=== PATIENT | female | born 1950 | race Caucasian/White ===

== ENCOUNTER 2020-08-31 09:11 | Outpatient (REF) | payer MEDICARE, SELFPAY ==
--- NOTE | 2020-08-31 09:16 | MM_ITS ---
EXAMINATION: MM SCREENING DIGITAL BREAST TOMOSYNTHESIS, BILATERAL CLINICAL INFORMATION: Screening. Asymptomatic. The lifetime risk of breast cancer based on the Tyrer-Cuzick Model is 3.7%. COMPARISON: Mammography: August 27, 2019 and studies dating back to July 02, 2012 TECHNIQUE: Digital breast tomosynthesis is performed in both the craniocaudal and mediolateral oblique views along with computer-aided detection (CAD). Synthesized 2D images are generated from the tomosynthesis. FINDINGS: The breasts are heterogeneously dense, which may obscure small masses (ACR BI-RADS breast composition Category c). There are no significant masses, abnormal calcifications, or other abnormalities. MM/MM tomosynthesis screening BI IMPRESSION: There are no significant changes from prior study. ASSESSMENT: BI-RADS 1: Negative RECOMMENDATION: Routine annual mammography screening. This patient's information was entered into a reminder system with a target due date for their next mammogram.
== END 2020-08-31 09:12 | disposition home or self-care (01) ==
LOC: HO.MAMMO 09:11
DX: Z12.31 Encounter for screening mammogram for malignant neoplasm of breast (principal)
CPT/HCPCS: 77063; 77067

== ENCOUNTER → 2020-09-28 12:49 | Outpatient (BNVA) | payer MEDICARE, SELFPAY | PROVIDERS: Visit Provider Physician Assistant | DX: Z13.89 Encounter for screening for other disorder (principal) | CPT/HCPCS: Q3014 ==

== ENCOUNTER 2020-10-21 07:52 | Outpatient (REF) | payer MEDICARE, SELFPAY ==
[2020-10-21 11:25] LABS: Hematocrit 46.6 % (37-47); Mean Corpuscular HGB Conc 32.2 g/dl (31.0-35.0); Mean Corpuscular Hemoglobin 27.9 pg (27.0-33.0); Mean Corpuscular Volume 86.8 fL (80-98); Mean Platelet Volume 11.9 fL (9.4-12.3); Platelet Count 203 X10*3/uL (160-400); Red Blood Count 5.37 X10*6/uL (4.20-5.50); Red Cell Distribution Width 13.7 % (11.0-16.0); White Blood Count 6.7 X10*3/uL (4.8-10.8)
[2020-10-21 12:02] LABS: Alanine Aminotransferase 42 U/L (0-31); Albumin Level 4.5 g/dL (3.5-5.0); Alkaline Phosphatase 90 U/L (39-117); Anion Gap 14 (12-20); Aspartate Amino Transferase 26 U/L (5-31); Bilirubin Direct 0.5 mg/dL (0.0-0.5); Bilirubin Total 1.1 mg/dL (0.0-1.0); Blood Urea Nitrogen 16 mg/dL (9-16); Calcium 9.3 mg/dL (8.4-10.2); Carbon Dioxide 26 mmol/L (22-29); Chloride 107 mmol/L (96-108); Cholesterol 137 mg/dL; Estimated Glomerular Filt Rate > 60; Glucose Random 93 mg/dL (60-115); HDL Cholesterol 40 mg/dL; LDL Cholesterol Calculated 73 mg/dl; Potassium 4.1 mmol/L (3.3-5.1); Sodium 143 mmol/L (135-145); Triglycerides 124 mg/dL
[2020-10-21 12:07] LABS: Thyroid Stimulating Hormone 1.27 uIU/mL (0.32-4.0)
[2020-10-21 14:01] LABS: Folate 12.9 ng/mL (> or = 4.0); Vitamin B12 219 pg/mL (200-900)
[2020-10-27 14:27] LABS: Vitamin D 25-OH, D2 <4 ng/mL; Vitamin D 25-OH, D3 34 ng/mL; Vitamin D 25-OH, Total 34 ng/mL (30-100)
== END 2020-10-21 07:53 | disposition home or self-care (01) ==
LOC: HO.HMGCLDS 07:52
PROVIDERS: PCP Internal Medicine; Visit Provider Internal Medicine
DX: R15.9 Full incontinence of feces (principal)
CPT/HCPCS: 36415; 80048; 80061; 80076; 82306; 82607; 82746; 84443; 85027

== ENCOUNTER 2020-11-15 09:27 | Day surgery (SDC) | payer MEDICARE, SELFPAY ==
[2020-11-08 15:23] VITALS: BMI 29.9
--- NOTE | 2020-11-14 09:43 | HO.ANESPROP2 ---
Documented by User: Margaret Corrales 11/14/20 09:44 HPI - Anesthesia Eval Consult details Narrative: 69yo F for Colonoscopy PMFSH Active Problems Active Problems: All Active Problems (Updated 11/08/20 @ 15:23 by Migdalia Gonzalez) Vitamin D deficiency (Acute) History of adenomatous polyp of colon (Acute) Hypercholesterolemia (Acute) Fecal incontinence (Acute) Change in stool (Acute) Past Medical History Medical History Change in stool Fecal incontinence Hypercholesterolemia Vitamin D deficiency Family History Family History Father HTN (hypertension) Heart attack Mother Parkinsons disease Brother Hemorrhage following kidney biopsy Sister Brain aneurysm Surgical History Surgical History H/O colonoscopy History of cholecystectomy History of surgery on arm Social History Social History Household Members: Spouse Are you a primary student career development specialist to a significant other at home: No Do you presently have visiting nurse or other home services: No Alcohol intake: current Alcohol intake frequency: does not drink Smoking Status: Former smoker Tobacco Type: Cigarette Smoking Quit Date: 11 yrs ago Use of substances other than those prescribed or required for medical reasons: No Have you been hit, kicked, punched, or otherwise hurt by someone within the past year? If so, by whom?: No Advance Directives: No Advance Directives Information Provided: No Advance Directives on File: No Recently lost weight without trying: No Meds Allergies Allergy/AdvReac Type Severity Reaction Status Date / Time No Known Allergies Allergy Verified 11/15/20 10:00 [No Known Allergies*] Home Medications Medication Instructions Recorded Confirmed Last Taken Type atorvastatin 10 mg tablet 10 mg PO DAILY 09/28/20 11/08/20 11/15/20 07:30 History cholecalciferol (vitamin D3) 1 cap PO QWEEK 11/08/20 11/08/20 Unknown History Exam Exam Date and Time: November 14, 2020 0943 Height,Weight and Vital Signs: Height 5 ft 3 in Weight 76.657 kg Pertinent Lab Results Pertinent Lab Results: Laboratory Tests 10/21/20 10/21/20 07:57 07:57 WBC 6.7 Hgb 15.0 Hct 46.6 Plt Count 203 Sodium 143 Potassium 4.1 Chloride 107 Carbon Dioxide 26 BUN 16 Creatinine 0.80 Assessment and Plan Assessment Anesthesia Assessment: Chart Reviewed Documented by User: Stoney Ojeda 11/15/20 10:33 [facility] Past Medical History Medical History Change in stool Fecal incontinence Hypercholesterolemia Vitamin D deficiency Family History Family History Father HTN (hypertension) Heart attack Mother Parkinsons disease Brother Hemorrhage following kidney biopsy Sister Brain aneurysm Surgical History Surgical History H/O colonoscopy History of cholecystectomy History of surgery on arm Social History Social History Household Members: Spouse Are you a primary student career development specialist to a significant other at home: No Do you presently have visiting nurse or other home services: No Alcohol intake: current Alcohol intake frequency: does not drink Smoking Status: Former smoker Tobacco Type: Cigarette Smoking Quit Date: 11 yrs ago Use of substances other than those prescribed or required for medical reasons: No Have you been hit, kicked, punched, or otherwise hurt by someone within the past year? If so, by whom?: No Advance Directives: No Advance Directives Information Provided: No Advance Directives on File: No Recently lost weight without trying: No Meds Allergies Allergy/AdvReac Type Severity Reaction Status Date / Time No Known Allergies Allergy Verified 11/15/20 10:00 [No Known Allergies*] Home Medications Medication Instructions Recorded Confirmed Last Taken Type atorvastatin 10 mg tablet 10 mg PO DAILY 09/28/20 11/08/20 11/15/20 07:30 History cholecalciferol (vitamin D3) 1 cap PO QWEEK 11/08/20 11/08/20 Unknown History Exam Airway Mallampati Class: II TM Dist: >3cm Neck ROM: Full Loose/Missing/Broken Teeth: Yes (many crowns/Caps) Heart: rrr+[id number] Lungs: cta b/l Assessment and Plan Assessment Anesthesia Assessment: Anesthesia Plan Discussed, PAT Visit and Chart Reviewed Final Anesthetic Review NPO: Yes ASA Class: III Final Preanesthetic Review: No Changes in Pt Med Stat, Meds/Allgs Chart Reviewed, Consent Obtained/Reviewed and Anes Risks/Benef Reviewed Patient Risk: Intermediate Procedure Risk: Low Assessment/Block/Sedation in SS: Assess/Block/Sedation-SS Anesthetic Plan Anesthetic Plan: MAC: and Agree w/ Assess. and Plan Disposition: Standard PACU
[2020-11-15 10:04] VITALS: BP 157/71; PULSE 73; RESP 16; TEMP 36.4; O2SAT 98
[2020-11-15] MEDS: Lactated Ringers 1,000 ML 100 ML IVCONT (10:09)
--- NOTE | 2020-11-15 10:46 | MHC.SHP ---
Pre-Procedural Eval Section B Chief Complaint: hx of colonic polyps Details of Present Illness: Colon cancer screening, Hx Tubular adenoma-2009 No clinical changes from September GI problem--Fecal leakage Relevant Family History (Specify if Yes): No Relevant Social History: None Present Medications: see Short Stay Collaborative assessment Medical History: Significant History (Hyperlipidema) History of Previous Operations: Relevant previous surgery/procedure and date(s) (Cholecystectomy, colonoscopy prev 2) Allergies: Allergies Allergy/AdvReac Type Severity Reaction Status Date / Time No Known Allergies Allergy Verified 11/15/20 10:00 [No Known Allergies*] Review of Systems Sugical H&P ROS: Negative: Constitution, Cardiovascular, Respiratory and Gastrointestinal Exam Surgical H&P Exam: Normal: HEENT, Normal: Heart, Normal: Extremities and Normal: Abdomen Plan Diagnosis/Plan: Unchanged I have reviewed the history and physical and performed a pertinent physical examination on my patient. No changes have occurred unless specified.yes
--- NOTE | 2020-11-15 11:19 | PM.OP ---
Brief Operative Note Date of Service: 11/15/20 Pre-op diagnosis: Hx of Tubular Adenoma, fecal incontinence Post-op diagnosis: other (rectal polyp, Diverticulosis, hx fecal incontinence) Procedure: Colonoscopy with excisional polypectomy Implants: NONE Surgeon: Taryn Hassan MD Anesthesia: MAC (Cuff, SERVICE DISPATCHER) and regional Estimated blood loss (mL): 5 Pathology: other (rectal polyp) Condition: stable Disposition: PACU
[2020-11-15 11:20] VITALS: BP 110/53; PULSE 72; RESP 20; TEMP 37.4; O2SAT 99
[2020-11-15 11:35] VITALS: BP 117/61; PULSE 77; RESP 20; O2SAT 97
[2020-11-15 11:50] VITALS: BP 137/72; PULSE 75; RESP 20; TEMP 37.1; O2SAT 99
--- NOTE | 2020-11-15 16:35 | W.PM.OPN ---
Operative Note Operative Note Date of Service: 11/15/20 Narrative: Pre-op diagnosis: Hx of Tubular Adenoma, fecal incontinence Post-op diagnosis: other (rectal polyp, Diverticulosis, hx fecal incontinence) Procedure: Colonoscopy with excisional polypectomy Implants: NONE Surgeon: Taryn Hassan MD Anesthesia: MAC (Cuff, BROOCH MAKER NOVELTY) FINDINGS: KINGSLEY: Minimal sphincter tone, External skin tags. Adult slim colonoscope was introduced without difficulty navigated through the sigmoid colon--scattered diverticulosis was present. Scope continued to be advanced into the descending, transverse, ascending colon into the cecum. Appendiceal orifice and ileocecal valve were well seen. PREP was GOOD. Slow withdrawal of scope, good rotational views no mucosal lesions were appreciated. In the rectum there was a diminutive polyp that had slightly variable crypt pattern-removed with cold bx forceps. ARV was clear. Estimated blood loss (mL): 5 Pathology: other (rectal polyp) Condition: stable Disposition: PACU PLAN: Screening will continue @ 5 years. Will try to advise on management of the fecal incontinence. Consideration for anal manometry may be considered.
== END 2020-11-15 12:41 | disposition home or self-care (01) ==
PROVIDERS: PCP Internal Medicine; Visit Provider Internal Medicine Gastroenterology
PROC: 0DJD8ZZ Inspection of Lower Intestinal Tract, Via Natural or Artificial Opening Endoscopic (ICD-10-PCS; CPT 45378; principal; 2020-11-15 10:40)
DX: Z12.11 Encounter for screening for malignant neoplasm of colon (principal); Z86.010 Personal history of colon polyps; K62.1 Rectal polyp; K57.30 Diverticulosis of large intestine without perforation or abscess without bleeding; K64.4 Residual hemorrhoidal skin tags; R15.9 Full incontinence of feces; E55.9 Vitamin D deficiency, unspecified; Z90.49 Acquired absence of other specified parts of digestive tract; Z87.891 Personal history of nicotine dependence; Z79.899 Other long term (current) drug therapy
CPT/HCPCS: 45380; 88305

== ENCOUNTER → 2020-11-21 10:33 | Outpatient (BNVA) | payer MEDICARE, SELFPAY | PROVIDERS: PCP Internal Medicine; Visit Provider Physician Assistant | DX: R15.9 Full incontinence of feces (principal) | CPT/HCPCS: 99212 ==

== ENCOUNTER 2021-05-08 06:26 | Outpatient (REF) | payer MEDICARE, SELFPAY ==
[2021-05-08 07:44] LABS: Hematocrit 42.7 % (37-47); Mean Corpuscular HGB Conc 32.8 g/dl (31.0-35.0); Mean Corpuscular Hemoglobin 27.9 pg (27.0-33.0); Mean Corpuscular Volume 85.2 fL (80-98); Mean Platelet Volume 11.1 fL (9.4-12.3); Platelet Count 207 X10*3/uL (160-400); Red Blood Count 5.01 X10*6/uL (4.20-5.50); Red Cell Distribution Width 14.1 % (11.0-16.0); White Blood Count 6.8 X10*3/uL (4.8-10.8)
[2021-05-08 08:26] LABS: Alanine Aminotransferase 32 U/L (0-31); Albumin Level 4.2 g/dL (3.5-5.0); Alkaline Phosphatase 97 U/L (39-117); Anion Gap 12 (12-20); Aspartate Amino Transferase 20 U/L (5-31); Bilirubin Direct 0.3 mg/dL (0.0-0.5); Bilirubin Total 0.7 mg/dL (0.0-1.0); Blood Urea Nitrogen 15 mg/dL (9-16); Calcium 9.6 mg/dL (8.4-10.2); Carbon Dioxide 24 mmol/L (22-29); Chloride 110 mmol/L (96-108); Cholesterol 124 mg/dL; Estimated Glomerular Filt Rate > 60; Glucose Random 99 mg/dL (60-115); HDL Cholesterol 39 mg/dL; LDL Cholesterol Calculated 67 mg/dl; Potassium 4.1 mmol/L (3.3-5.1); Sodium 142 mmol/L (135-145); Total Protein 6.5 g/dL (6.5-8.0); Triglycerides 93 mg/dL
[2021-05-08 08:53] LABS: Thyroid Stimulating Hormone 1.76 uIU/mL (0.32-4.0)
[2021-05-08 10:52] LABS: Appearance Urine HAZY; Color Urine YELLOW; Glucose Urine UA NEG (NEG); Leukocyte Esterase Urine 1+ (NEG); Nitrite Urine NEG (NEG); Specific Gravity - Urine >= 1.030 (1.005-1.025); Urine Blood TRACE (NEG); Urine Ketones NEG (NEG); Urine Protein NEG (NEG-TRACE)
[2021-05-08 11:02] LABS: Bacteria Urine 1+ /LPF; Calcium Oxalate Crystals Urine 3+ /LPF; RBC Urine 0 /HPF (0); Squamous Epithelial Cell Urine 4+ /LPF
[2021-05-14 15:57] LABS: Vitamin D 25-OH, D2 <4 ng/mL; Vitamin D 25-OH, D3 61 ng/mL; Vitamin D 25-OH, Total 61 ng/mL (30-100)
== END 2021-05-08 06:27 | disposition home or self-care (01) ==
LOC: HO.LAB 06:26
PROVIDERS: PCP Internal Medicine; Visit Provider Internal Medicine
DX: E55.9 Vitamin D deficiency, unspecified (principal); E78.00 Pure hypercholesterolemia, unspecified
CPT/HCPCS: 36415; 80048; 80061; 80076; 81001; 82306; 84443; 85027

== ENCOUNTER 2021-09-04 07:58 | Outpatient (REF) | payer MEDICARE, SELFPAY ==
--- NOTE | ~2021-09-04 | MM_ITS ---
EXAMINATION: MM SCREENING DIGITAL BREAST TOMOSYNTHESIS, BILATERAL CLINICAL INFORMATION: Screening. Asymptomatic. The lifetime risk of breast cancer based on the Tyrer-Cuzick Model is 3%. COMPARISON: Mammography: 08/31/2020, 08/27/2019, 08/22/2018 TECHNIQUE: Digital breast tomosynthesis is performed in both the craniocaudal and mediolateral oblique views along with computer-aided detection (CAD). Synthesized 2D images are generated from the tomosynthesis. FINDINGS: There are scattered areas of fibroglandular density (ACR BI-RADS breast composition Category b). There are no significant masses, abnormal calcifications, or other abnormalities. Breast tissue composition borders on heterogeneously dense. Parenchymal pattern is similar to prior studies. No developing density. No significant changes. MM/MM tomosynthesis screening BI IMPRESSION: No mammographic evidence of malignancy. ASSESSMENT: BI-RADS 1: Negative RECOMMENDATION: Routine annual mammography screening. This patient's information was entered into a reminder system with a target due date for their next mammogram.
== END 2021-09-04 07:59 | disposition home or self-care (01) ==
LOC: HO.MAMMO 07:58
PROVIDERS: PCP Internal Medicine; Visit Provider Internal Medicine
DX: Z12.31 Encounter for screening mammogram for malignant neoplasm of breast (principal)
CPT/HCPCS: 77063; 77067

== ENCOUNTER 2021-11-06 06:39 | Outpatient (REF) | payer MEDICARE, SELFPAY ==
[2021-11-06 07:24] LABS: Hematocrit 44.7 % (37.0-47.0); Hemoglobin 14.4 g/dl (12.0-16.0); Mean Corpuscular HGB Conc 32.2 g/dl (31.0-35.0); Mean Corpuscular Hemoglobin 28.2 pg (27.0-33.0); Mean Corpuscular Volume 87.6 fL (80.0-98.0); Mean Platelet Volume 11.1 fL (9.4-12.3); Platelet Count 197 X10*3/uL (160-400); Red Cell Distribution Width 13.6 % (11.0-16.0); White Blood Count 7.7 X10*3/uL (4.8-10.8)
[2021-11-06 08:19] LABS: Alanine Aminotransferase 26 U/L (0-31); Albumin Level 4.1 g/dL (3.5-5.0); Alkaline Phosphatase 80 U/L (39-117); Anion Gap 14 (12-20); Aspartate Amino Transferase 20 U/L (5-31); Bilirubin Direct 0.4 mg/dL (0.0-0.5); Blood Urea Nitrogen 16 mg/dL (9-16); Calcium 9.4 mg/dL (8.4-10.2); Carbon Dioxide 25 mmol/L (22-29); Chloride 106 mmol/L (96-108); Cholesterol 140 mg/dL; Estimated Glomerular Filt Rate > 60; Glucose Random 93 mg/dL (60-115); HDL Cholesterol 39 mg/dL; LDL Cholesterol Calculated 75 mg/dl; Sodium 141 mmol/L (135-145); Total Protein 6.8 g/dL (6.5-8.0); Triglycerides 133 mg/dL
[2021-11-11 13:56] LABS: Vitamin D 25-OH, D2 <4 ng/mL; Vitamin D 25-OH, D3 39 ng/mL; Vitamin D 25-OH, Total 39 ng/mL (30-100)
== END 2021-11-06 06:40 | disposition home or self-care (01) ==
LOC: HO.LAB 06:39
PROVIDERS: PCP Internal Medicine; Visit Provider Internal Medicine
DX: E55.9 Vitamin D deficiency, unspecified (principal); R15.9 Full incontinence of feces
CPT/HCPCS: 36415; 80048; 80061; 80076; 82306; 84443; 85027

== ENCOUNTER 2022-09-10 07:57 | Outpatient (REF) | payer MEDICARE, SELFPAY ==
--- NOTE | ~2022-09-10 | MM_ITS ---
EXAMINATION: MM SCREENING DIGITAL BREAST TOMOSYNTHESIS, BILATERAL CLINICAL INFORMATION: Screening. Asymptomatic. The lifetime risk of breast cancer based on the Tyrer-Cuzick Model is 3%. COMPARISON: Mammography: 09/04/2021, 08/31/2020, 08/27/2019, 08/22/2018 TECHNIQUE: Digital breast tomosynthesis is performed in both the craniocaudal and mediolateral oblique views along with computer-aided detection (CAD). Synthesized 2D images are generated from the tomosynthesis. FINDINGS: There are scattered areas of fibroglandular density (ACR BI-RADS breast composition Category b). Parenchymal pattern is similar to prior studies. No developing density or architectural abnormality. Breast tissue composition borders on heterogeneously dense. There are incidental intramammary nodes mid bilateral outer breasts. There are no significant masses, abnormal calcifications, or other abnormalities. MM/MM tomosynthesis screening BI IMPRESSION: No mammographic evidence of malignancy. ASSESSMENT: BI-RADS 2: Benign RECOMMENDATION: Routine annual mammography screening. This patient's information was entered into a reminder system with a target due date for their next mammogram.
== END 2022-09-10 07:58 | disposition home or self-care (01) ==
LOC: HO.MAMMO 07:57
PROVIDERS: Visit Provider Internal Medicine
DX: Z12.31 Encounter for screening mammogram for malignant neoplasm of breast (principal)
CPT/HCPCS: 77063; 77067

== ENCOUNTER 2022-11-13 07:00 | Outpatient (REF) | payer MEDICARE, SELFPAY ==
[2022-11-13 07:36] LABS: Hematocrit 43.8 % (37.0-47.0); Hemoglobin 14.1 g/dl (12.0-16.0); Mean Corpuscular HGB Conc 32.2 g/dl (31.0-35.0); Mean Corpuscular Volume 87.1 fL (80.0-98.0); Mean Platelet Volume 11.1 fL (9.4-12.3); Platelet Count 172 X10*3/uL (160-400); Red Blood Count 5.03 X10*6/uL (4.20-5.50); Red Cell Distribution Width 14.1 % (11.0-16.0); White Blood Count 7.2 X10*3/uL (4.8-10.8)
[2022-11-13 07:52] LABS: Appearance Urine Cloudy; Color Urine Yellow; Glucose Urine UA Negative (Negative); Leukocyte Esterase Urine Moderate (2+) (Negative); Nitrite Urine Negative (Negative); UMIC TRIGGER UA YES; Urine Blood Moderate (2+) (Negative); Urine Ketones Negative (Negative); Urine Protein Negative (Neg-Trace)
[2022-11-13 07:57] LABS: Bacteria Urine 1+ (None Seen); Hyaline Casts Urine 0-2 /LPF (0-2); WBC Urine 21-50 /HPF (0-5)
[2022-11-13 08:16] LABS: Alanine Aminotransferase 25 U/L (0-31); Albumin Level 4.2 g/dL (3.5-5.0); Alkaline Phosphatase 83 U/L (39-117); Anion Gap 12 (12-20); Aspartate Amino Transferase 18 U/L (5-31); Bilirubin Direct 0.3 mg/dL (0.0-0.5); Bilirubin Total 1.1 mg/dL (0.0-1.0); Blood Urea Nitrogen 15 mg/dL (9-16); Calcium 9.5 mg/dL (8.4-10.2); Carbon Dioxide 28 mmol/L (22-29); Chloride 107 mmol/L (96-108); Cholesterol 125 mg/dL; Estimated Glomerular Filt Rate > 60; Glucose Random 92 mg/dL (60-115); HDL Cholesterol 40 mg/dL; LDL Cholesterol Calculated 59 mg/dl; Potassium 3.9 mmol/L (3.3-5.1); Sodium 143 mmol/L (135-145); Total Protein 6.6 g/dL (6.5-8.0); Triglycerides 133 mg/dL
[2022-11-13 08:33] LABS: Thyroid Stimulating Hormone 1.72 uIU/mL (0.32-4.0)
== END 2022-11-13 07:01 | disposition home or self-care (01) ==
LOC: HO.LAB 07:00
PROVIDERS: PCP Internal Medicine; Visit Provider Internal Medicine
DX: E78.00 Pure hypercholesterolemia, unspecified (principal)
CPT/HCPCS: 36415; 80048; 80061; 80076; 81001; 84443; 85027

== ENCOUNTER 2023-05-16 08:47 | Outpatient (AMB) | payer MEDICARE, SELFPAY ==
--- NOTE | 2023-05-16 08:55 | MHC.PC.OV ---
Vital Signs 05/16/23 08:58 Height 5 ft 1.5 in Weight 167 lb 6 oz BMI 31.1 BP 130/80 Blood Pressure Location Lt brachial Position Sitting Pulse 82 Pulse Source Pulse Oximeter Pulse Oximetry (%) 97 Oxygen Delivery Method Room Air Intake Visit Reasons: 6mth f/u Intake Note: Patient is here to follow up on hypercholesterolemia. Coating Machine Operator Required: No Lithograph Press Operator: Present Accompanied by: Spouse Allergies No Known Allergies [No Known Allergies*] Allergy (Verified 05/16/23 09:20) Medication List - Last Reconciled 05/16/23 by Cleveland Chan MD atorvastatin 10 mg PO DAILY cholecalciferol (vitamin D3) 50 mcg PO DAILY Tobacco use date assessed: 05/16/23 Fall risk assessment: No Falls in past year Last assessed Fall Risk: 05/16/23 Dental Screening Dental Screen Date: 05/16/23 Did you have a dental visit in the last 12 months?: Yes Did you have a dental problem in the last 6 months where you did not have access to dental care?: No Was dental information given to patient?: Patient has dentist HPI 6mth f/u HPI Details 72-year-old female presents to the office to discuss her chronic medical conditions. Patient is in good health and compliant with medications. She is able to drive and do all activities of daily living. 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 She is seeing a ranch supervisor for this reason. Able to do all activities of daily living. She is able to take care of her personal hygiene independently he [facility] Medical History (Updated 05/16/23 @ 09:22 by Cleveland Chan MD) Basal cell carcinoma Vitamin D deficiency Hypercholesterolemia Fecal incontinence Change in stool Surgical History History of surgery on arm H/O colonoscopy History of cholecystectomy Family History Father HTN (hypertension) Heart attack Mother Parkinsons disease Brother Hemorrhage following kidney biopsy Sister Brain aneurysm Other Mental health disorder Social History Household Members: Spouse Housing: House Are you a primary rn home care to a significant other at home: No Do you presently have visiting nurse or other home services: No Alcohol intake: current Alcohol intake frequency: does not drink Patient Tobacco Use Status: Former Tobacco user (12 years ago) Quit Date: 12 years ago Tobacco use type: Cigarette Years Smoked: 12 years e-Cigarette/Vaping Use: Never Used Second Hand Smoke Exposure: Yes service: No Current occupational status: retired Cognitive needs: No Hearing needs: No Vision needs: Yes (reading glasses) Questionnaire Thrive Questionnaire Date Thrive assessed: 11/08/22 GLORIA-7 AMB Questionnaire GLORIA-7 Date GLORIA - 7 assessed: 11/08/22 Source: Developed by Drs. Lonny Avila, Alivia Castellanos, Franc Dumont and colleagues, with an educational layne from [employer]. Physical exam (Primary Care) Vital Signs: Last Vital Signs Pulse 82 05/16/23 08:58 BP 130/80 05/16/23 08:58 Pulse Ox 97 05/16/23 08:58 Oxygen Delivery Method Room Air 05/16/23 08:58 BMI result Body Mass Index 31.1 Tobacco/Smoking Status: Tobacco use Status Tobacco use date assessed 05/16/23 05/16/23 08:59 Patient Tobacco Use Status Former Tobacco user (05/16/23 08:59 years ago) Tobacco use type Cigarette 05/16/23 08:59 e-Cigarette/Vaping Use Never Used 05/16/23 08:59 Thrive Assessment: Date of Thrive Assessment Date Thrive assessed 11/08/22 05/16/23 08:59 Const General: cooperative and healthy appearing Nutritional Appearance: well nourished Orientation/consciousness: patient oriented x3 Limitations: no limitations HENMT Head: Yes normal to inspection Eyes General: appearance normal, both eyes and all related structures Neck Neck: Yes normal visual inspection Chest Chest palpation & inspection: normal palpation of entire chest wall Resp Effort & Inspection: normal respiratory effort Neuro General: patient oriented x3 Assessment and Plan Assessment & Plan (1) Basal cell carcinoma: Code(s): C44.91 - Basal cell carcinoma of skin, unspecified Qualifiers: Basal cell carcinoma location: face Basal cell carcinoma face location: nose Qualified Code(s): C44.311 - Basal cell carcinoma of skin of nose Plan: This condition is being managed by the ranch supervisor. (2) Vitamin D deficiency: Comment: Continue vitamin-D supplementation. Code(s): E55.9 - Vitamin D deficiency, unspecified Plan: Continue vitamin-D supplementation. (3) Hypercholesterolemia: Code(s): E78.00 - Pure hypercholesterolemia, unspecified Plan: Continue current medications. Will check blood work in 6 months. Coding Level of Care Code Est Pt Level 4 (04172) Diagnoses Basal cell carcinoma (BCC) of skin of nose C44.311 Basal cell carcinoma location: face Basal cell carcinoma face location: nose Vitamin D deficiency E55.9 Hypercholesterolemia E78.00
[2023-05-16 08:58] VITALS: BP 130/80; PULSE 82; O2SAT 97; BMI 31.1
== END 2023-05-16 09:31 | disposition home or self-care (01) ==
PROVIDERS: PCP Internal Medicine; Visit Provider Internal Medicine
DX: C44.311 Basal cell carcinoma of skin of nose (principal); E55.9 Vitamin D deficiency, unspecified; E78.00 Pure hypercholesterolemia, unspecified
CPT/HCPCS: 99214

== ENCOUNTER 2023-09-16 07:44 | Outpatient (REF) | payer MEDICARE, SELFPAY | END 2023-09-16 07:45 | disposition home or self-care (01) | LOC: HO.MAMMO 07:44 | PROVIDERS: PCP Internal Medicine; Visit Provider Internal Medicine | DX: Z12.31 Encounter for screening mammogram for malignant neoplasm of breast (principal) | CPT/HCPCS: 77063; 77067 ==

== ENCOUNTER → 2023-09-16 08:00 | Outpatient (BNV) | payer MEDICARE, SELFPAY | PROVIDERS: PCP Internal Medicine; Visit Provider Radiology Diagnostic Radiology | DX: Z12.31 Encounter for screening mammogram for malignant neoplasm of breast (principal) | CPT/HCPCS: 77063; 77067 ==

== ENCOUNTER 2023-11-11 07:42 | Outpatient (AMB) | payer MEDICARE, SELFPAY ==
[2023-11-11 08:13] VITALS: BP 136/72; PULSE 67; O2SAT 98; BMI 30.9
--- NOTE | 2023-11-11 08:13 | MHC.PC.OV ---
Vital Signs 11/11/23 08:13 Height 5 ft 1.5 in Weight 166 lb BMI 30.9 BP 136/72 Blood Pressure Location Lt brachial Position Sitting Pulse 67 Pulse Source Pulse Oximeter Pulse Oximetry (%) 98 Oxygen Delivery Method Room Air Intake Visit Reasons: 6mth f/u Allergies No Known Allergies [No Known Allergies*] Allergy (Verified 11/11/23 08:39) Medication List - Last Reconciled 11/11/23 by Cleveland Chan MD atorvastatin 10 mg PO DAILY cholecalciferol (vitamin D3) 50 mcg PO DAILY Tobacco use date assessed: 11/11/23 Fall risk assessment: No Falls in past year Last assessed Fall Risk: 11/11/23 Dental Screening Dental Screen Date: 11/11/23 Did you have a dental visit in the last 12 months?: Yes Did you have a dental problem in the last 6 months where you did not have access to dental care?: No Was dental information given to patient?: Patient has dentist HPI 6mth f/u HPI Details 72-year-old female presents to the office to discuss her chronic medical conditions. Patient is at baseline state of health. Compliant with medications and reporting no side effects. Able to function and do all activities of daily living. Patient is driving and lives independently with her . Able to take care of her personal hygiene, cook and sharp. She takes care of the personal accounts at home. [facility] Medical History (Updated 11/11/23 @ 08:43 by Cleveland Chan MD) Basal cell carcinoma Vitamin D deficiency Hypercholesterolemia Fecal incontinence Surgical History History of surgery on arm H/O colonoscopy History of cholecystectomy Family History Father HTN (hypertension) Heart attack Mother Parkinsons disease Brother Hemorrhage following kidney biopsy Sister Brain aneurysm Other Mental health disorder Social History Household Members: Spouse Housing: House Are you a primary nurse care manager to a significant other at home: No Do you presently have visiting nurse or other home services: No Alcohol intake: current Alcohol intake frequency: does not drink Patient Tobacco Use Status: Former Tobacco user (12 years ago) Quit Date: 12 years ago Tobacco use type: Cigarette Years Smoked: 12 years e-Cigarette/Vaping Use: Never Used Second Hand Smoke Exposure: Yes service: No Current occupational status: retired Cognitive needs: No Hearing needs: No Vision needs: Yes (reading glasses) Questionnaire PHQ-9 Over the last 2 weeks, how often have you been bothered by any of the following problems? 1. Little interest or pleasure in doing things: not at all 2. Feeling down, depressed, or hopeless: not at all 3. Trouble falling or staying asleep, or sleeping too much: not at all 4. Feeling tired or having little energy: not at all 5. Poor appetite or overeating: not at all 6. Feeling bad about yourself - or that you are a failure or have let yourself or your family down: not at all 7. Trouble concentrating on things, such as reading the newspaper or watching television: not at all 8. Moving or speaking so slowly that other people could have noticed. Or the opposite - being so fidgety or restless that you have been moving around a lot more than usual: not at all 9. Thoughts that you would be better off or of hurting yourself in some way: not at all Total score: 0 Depression Screening Interpretation: Negative Depression Screening Done: Yes Source: Developed by Drs. Lonny Avila, Alivia Castellanos, Franc Dumont and colleagues, with an educational layne from [employer]. Thrive Questionnaire Date Thrive assessed: 11/11/23 I am a: Patient What is your living situation today?: I have a steady place to live Within the past 12 months, did the food you bought not last and you didn't have the money to get more?: Never true Within the past 12 months, did you worry whether your food would run out before you got money to buy more?: Never true Do you have trouble paying for medicines?: No Do you have trouble getting transportation to medical appointments?: No Do you have trouble paying your heating and electricity bill?: No Do you have trouble taking care of your child, family member or friend?: No Do you have trouble with day-to-day activities such as bathing, preparing meals, shopping, managing finances, etc.?: No Are you currently unemployed and looking for a job?: No Are you interested in more education?: No Currently or been in a relationship where the following occur: no concerns reported THRIVE Score: 0 AUDIT C Alcohol Use Questionnaire (AUDIT-C) 1. How often do you have a drink containing alcohol?: Never 3. How often do you have six or more drinks on one occasion?: Never Total Score: 0 GLORIA-7 AMB Questionnaire GLORIA-7 Date GLORIA - 7 assessed: 11/11/23 Feeling nervous, anxious, or on edge: 0 = Not at all Not being able to stop or control worryin = Not at all Worrying too much about different things: 0 = Not at all Trouble relaxin = Not at all Being so restless that it is hard to sit still: 0 = Not at all Becoming easily annoyed or irritable: 0 = Not at all Feeling afraid as if something awful might happen: 0 = Not at all Total GLORIA-7 score (0-4 normal; 5-9 mild; 10-14 moderate; 15-21 severe): 0 Source: Developed by Drs. Lonny Avila, Alivia Castellanos, Franc Dumont and colleagues, with an educational layne from [employer]. Physical exam (Primary Care) Vital Signs: Last Vital Signs Pulse 67 11/11/23 08:13 BP 136/72 11/11/23 08:13 Pulse Ox 98 11/11/23 08:13 Oxygen Delivery Method Room Air 11/11/23 08:13 Care Plan Goal for BP management: Blood pressure is stable. Continue current medications. BMI result Body Mass Index 30.9 BMI Assessment/Plan discussion: High (1 lb per week weight loss suggested.) BMI High, discussed plan: lifestyle, weight reduction, dietary and physical activity Tobacco/Smoking Status: Tobacco use Status Tobacco use date assessed 11/11/23 11/11/23 08:15 Patient Tobacco Use Status Former Tobacco user (12 11/11/23 08:15 years ago) Tobacco use type Cigarette 11/11/23 08:15 e-Cigarette/Vaping Use Never Used 11/11/23 08:15 PHQ-9: PHQ-9 Score PHQ-9: Total score 0 11/11/23 08:15 Depression Screening Interpretation: Negative Thrive Assessment: Date of Thrive Assessment Date Thrive assessed 11/11/23 11/11/23 08:15 Currently or been in a relationship where the following occur: no concerns reported Advance Care Planning discussion: Exists, not on file Date of discussion: 11/11/23 Who was present: Patient and . Forms completed: Health Care Proxy Const General: cooperative and healthy appearing Nutritional Appearance: well nourished Orientation/consciousness: patient oriented x3 Limitations: no limitations HENMT Head: Yes normal to inspection Eyes General: appearance normal, both eyes and all related structures Neck Neck: Yes normal visual inspection Chest Chest palpation & inspection: normal palpation of entire chest wall Resp Effort & Inspection: normal respiratory effort Neuro General: patient oriented x3 Assessment and Plan Assessment & Plan (1) Basal cell carcinoma: Code(s): C44.91 - Basal cell carcinoma of skin, unspecified Qualifiers: Basal cell carcinoma location: face Basal cell carcinoma face location: nose Qualified Code(s): C44.311 - Basal cell carcinoma of skin of nose Plan: Condition has resolved. (2) Vitamin D deficiency: Comment: Continue vitamin-D supplementation. Code(s): E55.9 - Vitamin D deficiency, unspecified (3) History of adenomatous polyp of colon: Code(s): Z86.010 - Personal history of colonic polyps Plan: Cologuard result reviewed. (4) Hypercholesterolemia: Code(s): E78.00 - Pure hypercholesterolemia, unspecified Plan: Blood work has been ordered. Will call with the results. (5) Fecal incontinence: Code(s): R15.9 - Full incontinence of feces Plan: Condition is stable. Orders: Orders Basic Metabolic Panel Today E78.00 - Pure hypercholesterolemia, unspecified Complete Blood Count no Diff Today E78.00 - Pure hypercholesterolemia, unspecified Lipid Panel Today E78.00 - Pure hypercholesterolemia, unspecified Liver Panel Today E78.00 - Pure hypercholesterolemia, unspecified Thyroid Stimulating Hormone Today E78.00 - Pure hypercholesterolemia, unspecified UA and rflx microscopic Today E78.00 - Pure hypercholesterolemia, unspecified Coding Level of Care Code Est Pt Level 4 (89068) Diagnoses Basal cell carcinoma (BCC) of skin of nose C44.311 Basal cell carcinoma location: face Basal cell carcinoma face location: nose Vitamin D deficiency E55.9 History of adenomatous polyp of colon Z86.010 Hypercholesterolemia E78.00 Fecal incontinence R15.9 Additional Codes Vital Signs *Quality* - Advance Care Planning discussion: Exists, not on file ([id number])
== END 2023-11-11 08:42 | disposition home or self-care (01) ==
PROVIDERS: PCP Internal Medicine; Visit Provider Internal Medicine
DX: C44.311 Basal cell carcinoma of skin of nose (principal); E55.9 Vitamin D deficiency, unspecified; Z86.010 Personal history of colon polyps; E78.00 Pure hypercholesterolemia, unspecified; R15.9 Full incontinence of feces; Z00.00 Encounter for general adult medical examination without abnormal findings
CPT/HCPCS: 1123F; 99214

== ENCOUNTER 2023-11-11 08:53 | Outpatient (REF) | payer MEDICARE, SELFPAY ==
[2023-11-11 10:43] LABS: Appearance Urine Turbid; Color Urine Yellow; Glucose Urine UA Negative (Negative); Leukocyte Esterase Urine Moderate (2+) (Negative); Nitrite Urine Negative (Negative); UMIC TRIGGER UA YES; Urine Blood Trace (Negative); Urine Ketones Negative (Negative); Urine Protein Negative (Neg-Trace)
[2023-11-11 10:57] LABS: Bacteria Urine Trace (None Seen); Calcium Oxalate Crystals Urine Present; Hyaline Casts Urine 0-2 /LPF (0-2)
[2023-11-11 10:59] LABS: Hemoglobin 14.6 g/dl (12.0-16.0); Mean Corpuscular Hemoglobin 29.6 pg (27.0-33.0); Mean Corpuscular Volume 87.2 fL (80.0-98.0); Mean Platelet Volume 11.5 fL (9.4-12.3); Platelet Count 116 X10*3/uL (160-400); Red Blood Count 4.93 X10*6/uL (4.20-5.50); Red Cell Distribution Width 13.5 % (11.0-16.0)
[2023-11-11 11:23] LABS: Alanine Aminotransferase 30 U/L (0-31); Albumin Level 4.3 g/dL (3.5-5.0); Alkaline Phosphatase 85 U/L (39-117); Anion Gap 13 (12-20); Aspartate Amino Transferase 21 U/L (5-31); Bilirubin Direct 0.3 mg/dL (0.0-0.5); Bilirubin Total 0.8 mg/dL (0.0-1.0); Blood Urea Nitrogen 14 mg/dL (9-16); Calcium 9.6 mg/dL (8.4-10.2); Carbon Dioxide 24 mmol/L (22-29); Chloride 108 mmol/L (96-108); Cholesterol 123 mg/dL (<200); Estimated Glomerular Filt Rate > 60; Glucose Random 96 mg/dL (60-115); HDL Cholesterol 39 mg/dL (>40); LDL Cholesterol Calculated 64 mg/dL (<100); Potassium 4.1 mmol/L (3.3-5.1); Sodium 141 mmol/L (135-145); Total Protein 7.2 g/dL (6.5-8.0); Triglycerides 101 mg/dL (<150)
[2023-11-11 11:45] LABS: Thyroid Stimulating Hormone 1.18 uIU/mL (0.32-4.0)
== END 2023-11-11 08:54 | disposition home or self-care (01) ==
LOC: HO.10HDL 08:53
PROVIDERS: Visit Provider Internal Medicine
DX: E78.00 Pure hypercholesterolemia, unspecified (principal)
CPT/HCPCS: 36415; 80048; 80061; 80076; 81001; 84443; 85027

== ENCOUNTER 2023-12-18 08:10 | Outpatient (AMB) | payer MEDICARE, SELFPAY ==
[2023-12-18 08:19] VITALS: BP 130/74; PULSE 79; TEMP 37.1; O2SAT 98; BMI 30.9
--- NOTE | 2023-12-18 08:19 | AM.OFFWIN_ITS ---
Intake Vital Signs 12/18/23 08:19 Height 5 ft 1.5 in Weight 166 lb BMI 30.9 BP 130/74 Blood Pressure Location Lt brachial Position Sitting Pulse 79 Pulse Source Pulse Oximeter Temp 98.7 F Temp Source Oral Pulse Oximetry (%) 98 Oxygen Delivery Method Room Air Intake Visit Reasons: EP Chest discomfort/burning/burping Intake Note: pt is here for chest discomfort more up where her throat is and she says shes having a lot of burping. ongoing for 2 weeks Patient Tobacco Use Status: Former Tobacco user (12 years ago) Quit Date: 12 years ago Allergies No Known Allergies [No Known Allergies*] Allergy (Verified 12/18/23 08:23) Do you need a note to return to daycare/school/sports/work: No HPI HPI Comments History of Present Illness Details She has hx of HLD who presents with for chest discomfort This winter she had burning discomfort in center of chest She notices now 2-3 weeks she has fullness in chest Something pain radiates from stomach to R side chest + increased belching She denies pressure, sharp pans or elephant on chest Slight heaviness She notices it at random times and is not always associated with food Layin carlos back makes her feel better No difficulty swallowing No nausea, vomiting She said slight SOB with doing stairs but belives due to age She denies abdominal pain. She admits to loose stools for years. No urine symptoms [facility] Medical History (Updated 12/18/23 @ 10:14 by Yanelis Nichols PA-C) Basal cell carcinoma Vitamin D deficiency Hypercholesterolemia Fecal incontinence Surgical History History of surgery on arm H/O colonoscopy History of cholecystectomy Family History Father HTN (hypertension) Heart attack Mother Parkinsons disease Brother Hemorrhage following kidney biopsy Sister Brain aneurysm Other Mental health disorder Social History Household Members: Spouse Housing: House Are you a primary pet caregiver to a significant other at home: No Do you presently have visiting nurse or other home services: No Alcohol intake: current Alcohol intake frequency: does not drink Patient Tobacco Use Status: Former Tobacco user (12 years ago) Quit Date: 12 years ago Tobacco use type: Cigarette Years Smoked: 12 years e-Cigarette/Vaping Use: Never Used Second Hand Smoke Exposure: Yes service: No Current occupational status: retired Cognitive needs: No Hearing needs: No Vision needs: Yes (reading glasses) Review of Systems Const Denies body aches, Denies chills, Denies fever(s) and Denies headache(s) ENT Denies dizziness and Denies headache(s) Card Denies chest pain (describes as heaviness/fullness), Denies diaphoresis, Denies syncope, Denies rapid heart rate, Denies irregular heart rhythm, Denies leg edema, Reports dyspnea on exertion (she has noticed for a while but only with stairs and has been ongoing) and Denies orthopnea Resp Reports dyspnea on exertion (she has noticed for a while but only with stairs and has been ongoing) GI Denies abdominal pain, Denies constipation, Reports loose stools (chronic), Reports nausea and Denies vomiting Denies hematuria and Denies dysuria Musc Denies back pain Skin/Breast Reports other (bruising from dermatology and sons dog) Neuro Denies confusion, Denies dizziness, Denies syncope and Denies headache(s) Psych Denies confusion Physical Exam Vital Signs: Last Vital Signs Temp 98.7 F 12/18/23 08:19 Pulse 79 12/18/23 08:19 BP 130/74 12/18/23 08:19 Pulse Ox 98 12/18/23 08:19 Oxygen Delivery Method Room Air 12/18/23 08:19 BMI result Body Mass Index 30.9 General: Non-toxic, NAD. Speaking full sentences. Skin: Warm dry throughout. purple/blue ecchymosis noted to dorsal aspects of hands Eye: EOMI HENT: Airway patent. Uvula midline. No pharyngeal erythema or edema. No DIGITAL MEASUREMENT ADVISOR. Bilateral canals clear. TM non-erythematous, non-bulging. No TM perforation or hemotympanum noted. Respiratory: CTA bilaterally. No wheezes, rales or rhonchi Cardiac: RRR. No murmur MSK: Full ROM extremities. Neurology: A/O. No aphasia or facial droop. Gait without abnormality Psych: Good mood and affect Const General: No confusion Orientation/consciousness: No confusion Neuro General: No confusion Assessment & Plan Assessment & Plan (1) Chest fullness: Code(s): R07.89 - Other chest pain Plan: Patient seen and evaluated Pain ongoing x 2-3 weeks and not associated with exertion. EKG: NSR without ischemic changes. No STEMI Chest xray: + R lobe infiltrate Discussed with Dr. Fabian and sent message to him for follow up Explained results to pt and also showed her imaging Will hold on omeprazole at this time and take doxy as prescribed with food Close follow up with Dr. Fabian Patient and gave verbal understanding and had no additional questions or concerns at time of discharge All questions answered (2) Infiltrate noted on imaging study: Code(s): R93.89 - Abnormal findings on diagnostic imaging of other specified body structures Plan: See plan above Orders: Orders AMB EKG-In Office Today R07.89 - Other chest pain XR chest 2V Today R07.89 - Other chest pain Medications: New doxycycline hyclate 100 mg PO BID 14 caps 0RF Coding Level of Care Code Est Pt Level 3 (99483) Diagnoses Chest fullness R07.89 Infiltrate noted on imaging study R93.89
== END 2023-12-18 10:43 | disposition home or self-care (01) ==
PROVIDERS: PCP Internal Medicine; Visit Provider Physician Assistant
DX: R07.89 Other chest pain (principal); R93.89 Abnormal findings on diagnostic imaging of other specified body structures
CPT/HCPCS: 93000; 99213

== ENCOUNTER 2023-12-18 09:08 | Outpatient (REF) | payer MEDICARE, SELFPAY ==
--- NOTE | ~2023-12-18 | XR_ITS ---
EXAMINATION: XR CHEST CLINICAL INFORMATION: Chest pain. COMPARISON: None available. TECHNIQUE: 2 views of the chest were obtained. FINDINGS: The lungs are well expanded. There is patchy airspace disease within the medial aspect of the right lung base. No pleural effusion. Cardiac silhouette is within normal limits. XR/XR chest 2V IMPRESSION: Possible right basilar infiltrate. Advise clinical correlation.
== END 2023-12-18 09:09 | disposition home or self-care (01) ==
LOC: HO.HMGCX 09:08
PROVIDERS: PCP Internal Medicine; Visit Provider Physician Assistant
DX: R07.89 Other chest pain (principal)
CPT/HCPCS: 71046

== ENCOUNTER 2023-12-31 09:00 | Outpatient (AMB) | payer MEDICARE, SELFPAY ==
--- NOTE | 2023-12-31 09:23 | A.OFFPC_ITS ---
Vital Signs 12/31/23 09:25 Height 5 ft 1.5 in Weight 163 lb BMI 30.3 BP 140/70 H Blood Pressure Location Lt brachial Position Sitting Pulse 68 Pulse Source Pulse Oximeter Pulse Oximetry (%) 98 Oxygen Delivery Method Room Air Intake Visit Reasons: Chest Discomfort/ Walk in 12/18/23 Intake Note: Patient is here to follow up on Chest discomfort from walk in on 12/17. Cotton Ginner Required: No Community Affairs Manager: Not Required per policy Accompanied by: Self / Same As Patient Allergies No Known Allergies [No Known Allergies*] Allergy (Verified 12/31/23 10:26) Medication List - Last Reconciled 12/31/23 by Cleveland Chan MD atorvastatin 10 mg PO DAILY cholecalciferol (vitamin D3) 50 mcg PO DAILY Tobacco use date assessed: 12/31/23 Fall risk assessment: No Falls in past year Last assessed Fall Risk: 12/31/23 Dental Screening Dental Screen Date: 11/11/23 HPI Chest Discomfort/ Walk in 12/18/23 HPI Details 73-year-old female presents to the [facility] for a follow-up visit. Patient was seen at the walk-in for chest discomfort symptoms. She described a pulling sensation in her chest and exertional pain when she was walking or using the seal delivery vehicle officer. She would also reported that she had choked on food a few days prior to the onset of symptoms. A presumed diagnosis of aspiration pneumonia was made in the walk-in and patient was started on doxycycline. Patient has completed the antibiotic course. The pulling sensation in her chest has resolved. However she continues to have discomfort on exertion and at night she has pain across her back. Associated belching and burping present. EKG done in the walk-in was unremarkable. No palpitations or diaphoresis. [facility] Medical History Basal cell carcinoma Vitamin D deficiency Hypercholesterolemia Fecal incontinence Surgical History History of surgery on arm H/O colonoscopy History of cholecystectomy Family History Father HTN (hypertension) Heart attack Mother Parkinsons disease Brother Hemorrhage following kidney biopsy Sister Brain aneurysm Other Mental health disorder Social History Household Members: Spouse Housing: House Are you a primary career development facilitator to a significant other at home: No Do you presently have visiting nurse or other home services: No Alcohol intake: current Alcohol intake frequency: does not drink Patient Tobacco Use Status: Former Tobacco user (12 years ago) Quit Date: 12 years ago Tobacco use type: Cigarette Years Smoked: 12 years e-Cigarette/Vaping Use: Never Used Second Hand Smoke Exposure: Yes service: No Current occupational status: retired Cognitive needs: No Hearing needs: No Vision needs: Yes (reading glasses) Questionnaire Thrive Questionnaire Date Thrive assessed: 11/11/23 GLORIA-7 AMB Questionnaire GLORIA-7 Date GLORIA - 7 assessed: 11/11/23 Source: Developed by Drs. Lonny Avila, Alivia Castellanos, Franc Dumont and colleagues, with an educational layne from [employer] Physical exam (Primary Care) Vital Signs: Last Vital Signs Pulse 68 12/31/23 09:25 BP 140/70 H 12/31/23 09:25 Pulse Ox 98 12/31/23 09:25 Oxygen Delivery Method Room Air 12/31/23 09:25 BMI result Body Mass Index 30.3 Tobacco/Smoking Status: Tobacco use Status Tobacco use date assessed 12/31/23 12/31/23 09:35 Patient Tobacco Use Status Former Tobacco user (12/31/23 09:23 years ago) Tobacco use type Cigarette 12/31/23 09:23 e-Cigarette/Vaping Use Never Used 12/31/23 09:23 Thrive Assessment: Date of Thrive Assessment Date Thrive assessed 11/11/23 12/31/23 09:23 Const General: cooperative and healthy appearing Nutritional Appearance: well nourished Orientation/consciousness: patient oriented x3 Limitations: no limitations HENMT Head: Yes normal to inspection Eyes General: appearance normal, both eyes and all related structures Neck Neck: Yes normal visual inspection Chest Chest palpation & inspection: normal palpation of entire chest wall Resp Effort & Inspection: normal respiratory effort Neuro General: patient oriented x3 Assessment and Plan Assessment & Plan (1) Chest pain: Code(s): R07.9 - Chest pain, unspecified Plan Patient is giving atypical chest pain symptoms. A nuclear Cardiolite stress test has been ordered. Will call with the results. Meanwhile a PPI has also been ordered. Physical therapy for the upper back pain has been scheduled. Orders: Orders NM cardiolite stress test Today R07.9 - Chest pain, unspecified PT Evaluation and Treatment Today M54.9 - Dorsalgia, unspecified Coding Level of Care Code Est Pt Level 4 (25573) Diagnoses Chest pain R07.9
[2023-12-31 09:25] VITALS: BP 140/70; PULSE 68; O2SAT 98; BMI 30.3
== END 2023-12-31 10:21 | disposition home or self-care (01) ==
PROVIDERS: PCP Internal Medicine; Visit Provider Internal Medicine
DX: R07.9 Chest pain, unspecified (principal)
CPT/HCPCS: 99214

== ENCOUNTER → 2024-01-23 08:12 | Outpatient (REF) | payer MEDICARE, SELFPAY ==
--- NOTE | ~2024-01-23 | NM_ITS ---
EXERCISE MYOCARDIAL PERFUSION STUDY INDICATION: Chest discomfort, assess for coronary disease and ischemia TECHNIQUE: The patient was brought in for an exercise perfusion study on 01/23/2024. Patient performed exercise as per Kirby protocol and was injected 25 mCi of sestamibi once target heart rate was achieved. Images were obtained using the SPECT gamma camera interlaced with the gating device. Images were obtained in supine position. Resting perfusion study was performed on 01/24/2024. Patient was administered 25 mCi of sestamibi intravenously at rest. Images were then obtained in supine position. Images were processed with the software and compared side to side in short axis, horizontal long axis and vertical long axis views. Total DLP 160mGy-cm. FINDINGS: Raw images were reviewed. Arms by the patient's side. The stress perfusion study showed no significant perfusion abnormality. Both uncorrected as well as CT attenuation corrected images were reviewed. The gated study shows normal LV systolic function with calculated LVEF of 71%. LV cavity is normal in size. The gated study shows normal wall thickening and contraction of segments. Resting study shows no significant perfusion abnormality. Gating at rest reveals normal wall motion with ejection fraction at 61%. The findings are consistent with no clear reversible or fixed perfusion of normality. NM/NM cardiolite stress test IMPRESSION: 1. Myocardial perfusion imaging study shows probably normal myocardial perfusion. 2. Gated LVEF is 71% during stress and 61% during rest. 3. Transient ischemic dilatation not present. EKG component of the test reported separately.
--- NOTE | 2024-01-23 08:14 | CA_ITS ---
Acquisition Time: 2024-01-23 08:09:20 Total Exercise Time: 00:04:05 Test Indications: CP Medications: SEE H Protocol: CAROLYN Max HR: 146 BPM 100% of Pred: 145 BPM Max BP: 178/084 mmHG Max Work Load: 4.6 METS Exercise stress test with exercise 4 min 5 sec of Carolyn stage 1 ( stage held due to 97% at end of 3 min exercise), achieving 102% MPHR, with moderate to severe shortness of breath, 3/10 burning in upper chest, with isolated PAC and atrial cuplets, with normotensive response to exercise, without EKG changes meeting criteria for ischemia. In recovery her symptoms resolved with 4 minutes of rest. Nuclear images pending. Test reviewed with Dr Crowley. Referred By: Cleveland Chan Overread By: CRISTI DAVIS
== END ==
LOC: HO.CARD 08:12
PROVIDERS: PCP Internal Medicine; Visit Provider Internal Medicine
DX: R07.9 Chest pain, unspecified (principal)
CPT/HCPCS: 78452; 93017; A9500

== ENCOUNTER → 2024-01-23 08:14 | Outpatient (BNV) | payer MEDICARE, SELFPAY | PROVIDERS: PCP Internal Medicine; Visit Provider Nurse Practitioner Family | DX: R07.9 Chest pain, unspecified (principal) | CPT/HCPCS: 78452; 93016; 93018 ==

== ENCOUNTER 2024-05-14 08:39 | Outpatient (REF) | payer MEDICARE, SELFPAY ==
[2024-05-14 10:44] LABS: Hematocrit 38.9 % (37.0-47.0); Mean Corpuscular HGB Conc 33.4 g/dl (31.0-35.0); Mean Corpuscular Hemoglobin 30.8 pg (27.0-33.0); Mean Corpuscular Volume 92.2 fL (80.0-98.0); PLT CLUMP 1; Red Blood Count 4.22 X10*6/uL (4.20-5.50); Red Cell Distribution Width 14.1 % (11.0-16.0); WBC ABN SCTR FOR CBC 1
[2024-05-14 11:05] LABS: White Blood Count 6.2 X10*3/uL (4.8-10.8)
[2024-05-14 11:06] LABS: Mean Platelet Volume 12.2 fL (9.4-12.3); Platelet Count 98 X10*3/uL (160-400)
[2024-05-14 11:16] LABS: Alanine Aminotransferase 27 U/L (0-31); Albumin Level 4.3 g/dL (3.5-5.0); Alkaline Phosphatase 85 U/L (39-117); Anion Gap 10 (12-20); Aspartate Amino Transferase 21 U/L (5-31); Bilirubin Direct 0.3 mg/dL (0.0-0.5); Blood Urea Nitrogen 12 mg/dL (9-16); Calcium 9.4 mg/dL (8.4-10.2); Carbon Dioxide 26 mmol/L (22-29); Chloride 109 mmol/L (96-108); Cholesterol 123 mg/dL (<200); Estimated Glomerular Filt Rate > 60; Glucose Random 90 mg/dL (60-115); HDL Cholesterol 41 mg/dL (>40); LDL Cholesterol Calculated 62 mg/dL (<100); Sodium 141 mmol/L (135-145); Total Protein 7.2 g/dL (6.5-8.0); Triglycerides 104 mg/dL (<150)
[2024-05-14 11:17] LABS: Appearance Urine Clear; Color Urine Yellow; Glucose Urine UA Negative (Negative); Leukocyte Esterase Urine Moderate (2+) (Negative); Nitrite Urine Negative (Negative); PH 5.5 (5.0-9.0); UMIC TRIGGER UA YES; Urine Blood Negative (Negative); Urine Ketones Negative (Negative); Urine Protein Negative (Neg-Trace)
[2024-05-14 11:23] LABS: Bacteria Urine 1+ (None Seen); Hyaline Casts Urine 0-2 /LPF (0-2); RBC Urine 0-2 /HPF (0-2)
[2024-05-14 11:32] LABS: Thyroid Stimulating Hormone 0.95 uIU/mL (0.32-4.0)
== END 2024-05-14 08:40 | disposition home or self-care (01) ==
LOC: HO.LAB 08:39
PROVIDERS: PCP Internal Medicine; Visit Provider Internal Medicine
DX: E78.00 Pure hypercholesterolemia, unspecified (principal); R01.1 Cardiac murmur, unspecified
CPT/HCPCS: 36415; 80048; 80061; 80076; 81001; 81003; 84443; 85027; 99212

== ENCOUNTER 2024-05-14 08:39 | Outpatient (AMB) | payer MEDICARE, SELFPAY ==
--- NOTE | 2024-05-14 08:56 | A.OFFPC_ITS ---
Vital Signs 05/14/24 09:00 Height 5 ft 1.5 in Weight 161 lb BMI 29.9 BP 126/64 Blood Pressure Location Lt brachial Position Sitting Pulse 64 Pulse Source Pulse Oximeter Pulse Oximetry (%) 98 Oxygen Delivery Method Room Air Intake Visit Reasons: 6mth f/u Intake Note: Patient is here to follow up on Vertigo, Hypercholesterolemia. Project Manager Interior Design Required: No Decal Transferrer: Present Accompanied by: Spouse Allergies No Known Allergies [No Known Allergies*] Allergy (Verified 05/14/24 08:58) Tobacco use date assessed: 05/14/24 Fall risk assessment: No Falls in past year Last assessed Fall Risk: 05/14/24 Dental Screening Dental Screen Date: 11/11/23 HPI 6mth f/u HPI Details 73-year-old female presents to the [facility] to discuss her chronic medical conditions. She is accompanied by her . Patient is in good health and at baseline state of health. Able to function and do all activities of daily living. Patient reports that she continues to drive and keep the finances at home. No urinary incontinence. Compliant with all medications. [facility] Medical History Basal cell carcinoma Vitamin D deficiency Hypercholesterolemia Fecal incontinence Surgical History History of surgery on arm H/O colonoscopy History of cholecystectomy Family History Father HTN (hypertension) Heart attack Mother Parkinsons disease Brother Hemorrhage following kidney biopsy Sister Brain aneurysm Other Mental health disorder Social History Household Members: Spouse Housing: House Are you a primary neonatal critical care nurse to a significant other at home: No Do you presently have visiting nurse or other home services: No Alcohol intake: current Alcohol intake frequency: does not drink Patient Tobacco Use Status: Former Tobacco user (12 years ago) Tobacco use type: Cigarette Years Smoked: 12 years e-Cigarette/Vaping Use: Never Used Second Hand Smoke Exposure: Yes service: No Current occupational status: retired Cognitive needs: No Hearing needs: No Vision needs: Yes (reading glasses) Questionnaire Thrive Questionnaire Date Thrive assessed: 11/11/23 Are you currently unemployed and looking for a job?: No GLORIA-7 AMB Questionnaire GLORIA-7 Date GLORIA - 7 assessed: 11/11/23 Source: Developed by Drs. Lonny Avila, Alivia Castellanos, Franc Dumont and colleagues, with an educational layne from [employer]. Physical exam (Primary Care) Vital Signs: Last Vital Signs Pulse 64 05/14/24 09:00 BP 126/64 05/14/24 09:00 Pulse Ox 98 05/14/24 09:00 Oxygen Delivery Method Room Air 05/14/24 09:00 BMI result Body Mass Index 29.9 Tobacco/Smoking Status: Tobacco use Status Tobacco use date assessed 05/14/24 05/14/24 08:58 Patient Tobacco Use Status Former Tobacco user (12 05/14/24 08:58 years ago) Tobacco use type Cigarette 05/14/24 08:58 e-Cigarette/Vaping Use Never Used 05/14/24 08:58 Thrive Assessment: Date of Thrive Assessment Date Thrive assessed 11/11/23 05/14/24 08:58 Const General: cooperative and healthy appearing Nutritional Appearance: well nourished Orientation/consciousness: patient oriented x3 Limitations: no limitations HENMT Head: Yes normal to inspection Eyes General: appearance normal, both eyes and all related structures Neck Neck: Yes normal visual inspection Chest Chest palpation & inspection: normal palpation of entire chest wall Resp Effort & Inspection: normal respiratory effort Cardio Other: Soft systolic murmur best heard over the aortic and pulmonary area. Jugular venous distension: no JVD Palpation: normal PMI Rate: regular rate Rhythm: regular rhythm Heart sounds: S1 normal heart sound present and S2 normal heart sound present Neuro General: patient oriented x3 Assessment and Plan Assessment & Plan (1) Hypercholesterolemia: Code(s): E78.00 - Pure hypercholesterolemia, unspecified Plan: Blood work has been ordered. Based on the results the statin dosage will be adjusted. (2) Heart murmur: Code(s): R01.1 - Cardiac murmur, unspecified Plan: Best heard over the parasternal area. A screening echocardiogram will be ordered. Orders: Orders Basic Metabolic Panel Today E78.00 - Pure hypercholesterolemia, unspecified Lipid Panel Today E78.00 - Pure hypercholesterolemia, unspecified Liver Panel Today E78.00 - Pure hypercholesterolemia, unspecified Thyroid Stimulating Hormone Today E78.00 - Pure hypercholesterolemia, unspecified UA and rflx microscopic Today E78.00 - Pure hypercholesterolemia, unspecified CA echo transthoracic complete Today R01.1 - Cardiac murmur, unspecified Complete Blood Count no Diff Today E78.00 - Pure hypercholesterolemia, unspecified Coding Level of Care Code Est Pt Level 4 (82054) Complex EM visit Add On G2211 Diagnoses Hypercholesterolemia E78.00 Heart murmur R01.1
[2024-05-14 09:00] VITALS: BP 126/64; PULSE 64; O2SAT 98; BMI 29.9
== END 2024-05-14 09:57 | disposition home or self-care (01) ==
PROVIDERS: PCP Internal Medicine; Visit Provider Internal Medicine
DX: E78.00 Pure hypercholesterolemia, unspecified (principal); R01.1 Cardiac murmur, unspecified

== ENCOUNTER → 2024-06-23 07:35 | Outpatient (REF) | payer MEDICARE, SELFPAY ==
--- NOTE | 2024-06-23 07:38 | CA_ITS ---
Transthoracic Echocardiogram Patient (Last, First, Middle): Taryn Saldivar Jo Gender: Female Date of : 1950 Age: 73 Procedure Date: 06/23/2024 Procedure Type: Transthoracic Echocardiogram Location: OP Height: 154.94 cm Weight: 73.03 kg BSA: 1.72 m2 Heart Rate: 68 bpm BP: 124 / 62 mmHg Bank Representative: SB Referring MD: Cleveland Chan MD Symptoms: R01.1 - Cardiac murmur, unspecified Study Quality: Adequate ECG Rhythm: Sinus Conclusions: - The left ventricular systolic function is normal. The calculated ejection fraction is 66% by biplane method. - Aortic valve calcification with early stenosis. Findings Left Ventricle Normal left ventricular cavity size. The left ventricular systolic function is normal. The calculated ejection fraction is 66% by biplane method. There is no evidence of regional wall motion abnormalities. Diastolic function is normal for age. There is mild septal and mild basal asymmetric hypertrophy. Right Ventricle Normal right ventricular cavity size and systolic function. Atria Both atria are normal in size. Aortic Valve There is mild calcification of the aortic valve. There is no aortic valve regurgitation. Early aortic stenosis. Mitral Valve The mitral valve appears normal. There is no mitral valve regurgitation. There is no mitral valve stenosis. Pulmonic Valve The pulmonic valve is likely normal. Tricuspid Valve Normal tricuspid valve structure. There is mild tricuspid valve regurgitation. There is no evidence of pulmonary hypertension. Great Vessels The asc aorta is normal in size. Venous The inferior vena cava is normal in size and collapses greater than 50% with inspiration. Pericardium/Pleural There is no evidence of pericardial effusion. Prior Study Comparison Changes noted compared to prior study dated: 03/28/2011. Aortic valve calcification noted. Measurements 2D Linear Measurements IVSd: 0.91 0.6-0.9/0.6-1.0 cm LVIDd: 4.98 3.9-5.3/4.2-5.9 cm LVIDd Index: 2.90 2.4-3.2/2.2-3.1 cm/m2 LVIDs: 2.73 2.0-3.6 cm LVPWd: 0.83 0.7-1.1 cm LA Diam: 3.50 2.7-3.8/3.0-4.0 cm LAIDs Index: 2.03 1.5-2.3 cm/m2 LV Mass: 187.30 67-162/88-224 g LV Mass Index: 108.89 43-95/49-115 g/m2 LVOT Diam: 2.00 3.0+(-)1.3 cm 2D Systolic Function EF 4C: 69.60 >55% EF 2C: 64.60 >55% EF BiP: 66.30 >55% Mitral Valve MV Pk E: 0.86 MV PK A: 0.85 MV Decel Time: 205.00 E/A: 1.00 E'Lateral: 7.18 E'Medial: 5.87 E/E' Med: 14.70 E/E' Lat: 12.00 PHT: 60.00 MVA PHT: 3.67 Decel [place]: 4.21 Aortic Valve AoV Pk Valdemar: 2.08 AoV Mn Valdemar: 1.41 AoV VTI: 0.45 AoV Pk Grad: 17.00 Aov Mn Grad: 9.00 GENNY Cont.VTI: 1.89 LVOT LVOT Pk Valdemar: 1.32 LVOT Mn Valdemar: 0.83 LVOT VTI: 0.27 LVOT Pk Grad: 7.00 LVOT Mn Grad: 3.00 LVOT Diam: 2.00 LVOT Area: 3.14 Diastolic Function MV Pk E: 0.86 MV Pk A: 0.85 E/A: 1.00 E'Medial: 5.87 E/E' Med: 14.70 E' Laterial: 7.18 E/E' Lat: 12.00 Right Ventricle TAPSE (mm): 18.00 TVS' Valdemar: 13.80 Tricuspid Valve TR Pk Valdemar: 2.23 TR Pk Grad: 20.00 RA Press: 3.00 RVSP: 23.00 Great Vessels Aorta Sinus of Valsalva: 2.50 2.0-3.5 cm Ao Asc: 2.70 2.1-3.4 cm Pulmonary Valve PV Pk Valdemar: 0.96 Peak PV Grad: 4.00 Updated in Other Vendor System with Status of Final Sean Crowley MD electronically signed on 06/24/2024 11:29:26 AM with status of Final
== END ==
LOC: HO.CARD 07:35
PROVIDERS: PCP Internal Medicine; Visit Provider Internal Medicine
DX: R01.1 Cardiac murmur, unspecified (principal)
CPT/HCPCS: 93306

== ENCOUNTER → 2024-06-23 07:38 | Outpatient (BNV) | payer MEDICARE, SELFPAY | PROVIDERS: PCP Internal Medicine; Visit Provider Internal Medicine | DX: I42.2 Other hypertrophic cardiomyopathy (principal); I35.0 Nonrheumatic aortic (valve) stenosis; I35.8 Other nonrheumatic aortic valve disorders; I36.1 Nonrheumatic tricuspid (valve) insufficiency | CPT/HCPCS: 93306 ==

== ENCOUNTER → 2024-09-29 08:15 | Outpatient (BNV) | payer MEDICARE, SELFPAY | PROVIDERS: PCP Internal Medicine; Visit Provider Internal Medicine | DX: Z12.31 Encounter for screening mammogram for malignant neoplasm of breast (principal) | CPT/HCPCS: 77063; 77067 ==

== ENCOUNTER 2024-11-12 12:34 | Outpatient (AMB) | payer MEDICARE, SELFPAY ==
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
[2024-11-12 12:51] VITALS: BP 116/78; PULSE 75; O2SAT 98; BMI 29.7
== END 2024-11-12 13:50 | disposition home or self-care (01) ==
LOC: HO.HMCH 12:35
PROVIDERS: PCP Internal Medicine; Visit Provider Physician Assistant Medical
DX: Z09 Encounter for follow-up examination after completed treatment for conditions other than malignant neoplasm (principal); E55.9 Vitamin D deficiency, unspecified; D69.6 Thrombocytopenia, unspecified; E78.00 Pure hypercholesterolemia, unspecified; T21.01XA Burn of unspecified degree of chest wall, initial encounter; I35.0 Nonrheumatic aortic (valve) stenosis

== ENCOUNTER → 2024-11-12 12:34 | Outpatient (BNVA) | payer MEDICARE, SELFPAY | PROVIDERS: PCP Internal Medicine; Visit Provider Physician Assistant Medical | DX: Z09 Encounter for follow-up examination after completed treatment for conditions other than malignant neoplasm (principal); E55.9 Vitamin D deficiency, unspecified; E78.00 Pure hypercholesterolemia, unspecified; I35.0 Nonrheumatic aortic (valve) stenosis; D69.6 Thrombocytopenia, unspecified; T21.01XD Burn of unspecified degree of chest wall, subsequent encounter | CPT/HCPCS: 96127; 99212 ==

== ENCOUNTER 2024-11-13 06:39 | Outpatient (REF) | payer MEDICARE, SELFPAY ==
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
--- NOTE | 2024-11-13 07:41 | ECG_ITS ---
Test Reason : cp Blood Pressure : */* mmHG Vent. Rate : 71 BPM Atrial Rate : 71 BPM P-R Int : 142 ms QRS Dur : 84 ms QT Int : 384 ms P-R-T Axes : 63 26 35 degrees QTcB Int : 417 ms Normal sinus rhythm Normal ECG When compared with ECG of 19-Jan-2010 13:28, No significant changes seen Referred By: Radha Chacon Electronically Signed By: Charlie Wilson
[2024-11-13 08:09] LABS: Estimated Average Glucose 103 mg/dL; Hemoglobin A1c % 5.2 % (<6.0)
[2024-11-13 08:10] LABS: Hematocrit 34.4 % (37.0-47.0); Hemoglobin 11.5 g/dl (12.0-16.0); Mean Corpuscular HGB Conc 33.4 g/dl (31.0-35.0); Mean Corpuscular Hemoglobin 31.6 pg (27.0-33.0); Mean Corpuscular Volume 94.5 fL (80.0-98.0); Red Blood Count 3.64 X10*6/uL (4.20-5.50); Red Cell Distribution Width 14.4 % (11.0-16.0)
[2024-11-13 08:11] LABS: WBC ABN SCTR FOR CBC 1
[2024-11-13 08:45] LABS: White Blood Count 4.5 X10*3/uL (4.8-10.8)
[2024-11-13 08:46] LABS: Mean Platelet Volume 12.9 fL (9.4-12.3); Platelet Count 67 X10*3/uL (160-400)
[2024-11-13 08:48] LABS: Alanine Aminotransferase 24 U/L (0-31); Albumin Level 4.2 g/dL (3.5-5.0); Alkaline Phosphatase 85 U/L (39-117); Anion Gap 9 (12-20); Aspartate Amino Transferase 19 U/L (5-31); Bilirubin Direct 0.3 mg/dL (0.0-0.5); Bilirubin Total 0.7 mg/dL (0.0-1.0); Blood Urea Nitrogen 16 mg/dL (9-16); C Reactive Protein < 0.10 mg/dL (< or = 0.50); Calcium 9.4 mg/dL (8.4-10.2); Carbon Dioxide 26 mmol/L (22-29); Chloride 111 mmol/L (96-108); Cholesterol 105 mg/dL (<200); Erythrocyte Sedimentation Rate 14 MM/HR (0-20); Estimated Glomerular Filt Rate > 60; Glucose Random 97 mg/dL (60-115); HDL Cholesterol 37 mg/dL (>40); LDL Cholesterol Calculated 51 mg/dL (<100); Magnesium 2.1 mg/dL (1.6-2.6); Phosphorus 4.1 mg/dL (2.7-4.5); Potassium 4.3 mmol/L (3.3-5.1); Sodium 142 mmol/L (135-145); Triglycerides 86 mg/dL (<150)
[2024-11-13 08:50] LABS: Band Neutrophils Percent 0 % (3-5); Eosinophils Percent Manual 1 % (0-4); Lymphocytes Absolute Manual 1.2 X10*3/uL (1.2-4.9); Lymphocytes Percent Manual 26 % (20-40); Monocytes Absolute Manual 0.1 X10*3/uL (0.1-1.2); Monocytes Percent Manual 3 % (2-11); Neutrophils Absolute Manual 3.2 X10*3/uL (2.0-8.3); Neutrophils Percent Manual 70 % (45-73)
[2024-11-13 08:51] LABS: RBC Morphology NORMAL
[2024-11-13 08:52] LABS: Large Platelet PRESENT; Platelet Estimate DECREASED (NORMAL); Platelet Morphology Comment NOTED
[2024-11-13 08:59] LABS: TSH reflex Free T4 2.26 uIU/mL (0.32-4.0); Vitamin D 25-OH Total 33.3 ng/mL (>30)
[2024-11-13 09:02] LABS: Folate 9.5 ng/mL (> or = 4.0); Vitamin B12 190 pg/mL (200-900)
[2024-11-22 01:13] LABS: Vitamin B1 17 nmol/L (8-30)
== END 2024-11-13 06:40 | disposition home or self-care (01) ==
LOC: HO.XRAY 06:39
PROVIDERS: PCP Internal Medicine; Visit Provider Physician Assistant Medical
DX: Z00.00 Encounter for general adult medical examination without abnormal findings (principal); T21.01XA Burn of unspecified degree of chest wall, initial encounter; Z13.1 Encounter for screening for diabetes mellitus; Z13.6 Encounter for screening for cardiovascular disorders
CPT/HCPCS: 36415; 71046; 80053; 80061; 82248; 82306; 82550; 82607; 82746; 83036; 83735; 83970; 84100; 84425; 84443; 85007; 85025; 85027; 85652; 86140; 87338; 93005

== ENCOUNTER → 2024-11-13 07:12 | Outpatient (BNV) | payer MEDICARE, SELFPAY | PROVIDERS: PCP Internal Medicine; Visit Provider Radiology Diagnostic Radiology | DX: R07.9 Chest pain, unspecified (principal); T21.01XA Burn of unspecified degree of chest wall, initial encounter | CPT/HCPCS: 71046 ==

== ENCOUNTER → 2024-11-13 07:41 | Outpatient (BNV) | payer MEDICARE, SELFPAY | PROVIDERS: PCP Internal Medicine; Visit Provider Internal Medicine Cardiovascular Disease | DX: R07.9 Chest pain, unspecified (principal) | CPT/HCPCS: 93010 ==

== ENCOUNTER 2024-12-17 08:14 | Outpatient (AMB) | payer MEDICARE, SELFPAY ==
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
[2024-12-17 08:32] VITALS: BP 120/62; PULSE 71; TEMP 36.2; O2SAT 98; BMI 29.6
== END 2024-12-17 12:20 | disposition home or self-care (01) ==
LOC: HO.HMCH 08:15
PROVIDERS: PCP Internal Medicine; Visit Provider Internal Medicine
DX: I35.0 Nonrheumatic aortic (valve) stenosis (principal); D64.9 Anemia, unspecified; K21.9 Gastro-esophageal reflux disease without esophagitis

== ENCOUNTER → 2024-12-17 08:14 | Outpatient (BNVA) | payer MEDICARE, SELFPAY | PROVIDERS: PCP Internal Medicine; Visit Provider Internal Medicine | DX: I35.0 Nonrheumatic aortic (valve) stenosis (principal); D64.9 Anemia, unspecified; K21.9 Gastro-esophageal reflux disease without esophagitis | CPT/HCPCS: 99212 ==

== ENCOUNTER 2025-05-20 08:28 | Outpatient (AMB) | payer MEDICARE, SELFPAY ==
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
[2025-05-20 08:43] VITALS: BP 136/64; PULSE 76; TEMP 36.1; O2SAT 97; BMI 28.8
--- OUTSIDE RECORDS SUMMARY | 2025-05-20 09:01 | XMS_ITS | Patient Health Record ---
[facility] Address [address] [place] [address] Care Team Providers Care Fly Fishing Guide Name Role Phone Kirsten BURKS, Eloise Primary Care Provider UnavailMelo Chaney Unavailable [phone] Reason For Referral No Information Medications Medication SIG (Take, Route, Frequency, Duration) Notes Start Date End Date Status Atorvastatin Calcium 10 MG Oral; Duration: 30 Active Social History Tobacco use other than smoking: Question Answer Notes Are you an other tobacco user? No Plan Of Treatment Pending Test Test Name Order Date X ray : Foot, left 2V 05/15/2016 Insurance Providers Payer Name Payer Address Payer Phone Subscriber Number Group Number Insured Name Patient Relationship to Insured Coverage Start Date Coverage End Date Medicare National Govt Sv[employer] [address] [facility] [address] [id number] Katharina Saldivar Self - patient is the insured [employer] [address] [place] [address] [phone] [id number] Katharina Saldivar Self - patient is the insured Medical (General) History Medical History History ICD Code Cholesterol Osteoporosis Measles Surgical History Surgery Date(Month/Year) 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
--- OUTSIDE RECORDS SUMMARY | 2025-05-20 09:01 | XMS_ITS | Patient Health Record ---
Author Organization [facility] Address [address] [place] [id number] Care Team Providers Care Ventilating Engineer Name Role Phone Yuan Lonny Unavailable [phone] Reason For Referral No Information Plan Of Treatment No Information
== END 2025-05-20 09:26 | disposition home or self-care (01) ==
LOC: HO.HMCH 08:29
PROVIDERS: PCP Internal Medicine; Visit Provider Internal Medicine
DX: R79.89 Other specified abnormal findings of blood chemistry (principal); I35.0 Nonrheumatic aortic (valve) stenosis

== ENCOUNTER → 2025-05-20 08:28 | Outpatient (REF) | payer MEDICARE, SELFPAY ==
--- NOTE | 2025-05-20 09:48 | ECG_ITS ---
Test Reason : non rheum. avs Blood Pressure : */* mmHG Vent. Rate : 71 BPM Atrial Rate : 71 BPM P-R Int : 140 ms QRS Dur : 80 ms QT Int : 394 ms P-R-T Axes : 63 29 31 degrees QTcB Int : 428 ms Normal sinus rhythm Normal ECG When compared with ECG of 13-Nov-2024 07:42, No significant change was found Referred By: Cleveland Chan Electronically Signed By: Charlie Wilson
[2025-05-20 11:13] LABS: Parathyroid Hormone Intact 74.5 pg/mL (8.7-77.1)
== END ==
LOC: HO.CARD 08:28
PROVIDERS: PCP Internal Medicine; Visit Provider Internal Medicine
DX: I35.0 Nonrheumatic aortic (valve) stenosis (principal); R79.89 Other specified abnormal findings of blood chemistry
CPT/HCPCS: 36415; 83970; 93005; 99212

== ENCOUNTER → 2025-05-20 09:48 | Outpatient (BNV) | payer MEDICARE, SELFPAY | PROVIDERS: PCP Internal Medicine; Visit Provider Internal Medicine Cardiovascular Disease | DX: I35.0 Nonrheumatic aortic (valve) stenosis (principal) | CPT/HCPCS: 93010 ==

== ENCOUNTER 2025-07-05 09:05 | Outpatient (AMB) | payer MEDICARE, SELFPAY ==
[2025-07-05 09:16] VITALS: BP 138/56; PULSE 98; TEMP 36.6; O2SAT 100; BMI 29.0
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
== END 2025-07-05 10:23 | disposition home or self-care (01) ==
PROVIDERS: PCP Internal Medicine; Visit Provider Nurse Practitioner Family
DX: H93.13 Tinnitus, bilateral (principal)

== ENCOUNTER → 2025-07-05 09:05 | Outpatient (BNVA) | payer MEDICARE, SELFPAY | PROVIDERS: PCP Internal Medicine; Visit Provider Nurse Practitioner Family | DX: H93.13 Tinnitus, bilateral (principal) | CPT/HCPCS: 99212 ==

== ENCOUNTER 2025-07-08 07:42 | Outpatient (AMB) | payer MEDICARE, SELFPAY ==
--- OUTSIDE RECORDS SUMMARY | 2025-07-08 07:45 | XMS_ITS | Patient Health Record ---
[facility] Address [address] [place] [address] Care Team Providers Care Bricklayer'S Assistant Name Role Phone Kirsten BURKS, Eloise Primary Care Provider Melo Winters Unavailable [phone] Reason For Referral No Information Medications Medication [...] National Govt S[employer] [address] [place] [address] [id number] Katharina Saldivar Self - patient is the insured [employer] [address] [place] [address] [id number] Katharina Saldivar Self - patient is the insured Medical (General) History Medical History History ICD Code Cholesterol Osteoporosis Measles Surgical History Surgery Date(Month/Year) 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
--- OUTSIDE RECORDS SUMMARY | 2025-07-08 07:45 | XMS_ITS | Patient Health Record ---
Author Organization [facility] Address [address] [place] [id number] Care Team Providers Care Supervisor Grips Name Role Phone Yuan Lonny Unavailable [phone] Reason For Referral No Information Plan Of Treatment No Information
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
[2025-07-08 07:50] VITALS: BP 136/70; PULSE 83; O2SAT 98; BMI 28.8
== END 2025-07-08 08:52 | disposition home or self-care (01) ==
LOC: HO.HMCH 07:43
PROVIDERS: PCP Internal Medicine; Visit Provider Internal Medicine
DX: I35.0 Nonrheumatic aortic (valve) stenosis (principal)

== ENCOUNTER → 2025-07-08 07:42 | Outpatient (BNVA) | payer MEDICARE, SELFPAY | PROVIDERS: PCP Internal Medicine; Visit Provider Internal Medicine | DX: I35.0 Nonrheumatic aortic (valve) stenosis (principal) | CPT/HCPCS: 93005; 96127; 99212 ==

== ENCOUNTER → 2025-07-20 08:05 | Outpatient (REF) | payer MEDICARE, SELFPAY ==
--- NOTE | ~2025-07-20 | NM_ITS ---
EXERCISE MYOCARDIAL PERFUSION STUDY INDICATION: Chest pain TECHNIQUE: The patient was brought in for an exercise perfusion study on 07/20/2025. Patient performed exercise as per Kirby protocol and was injected 25 mCi of sestamibi once target heart rate was achieved. Images were obtained using the SPECT gamma camera interlaced with the gating device. Images were obtained in supine position. Resting perfusion study was performed on 07/21/2025. Patient was administered 25 mCi of sestamibi intravenously at rest. Images were then obtained in supine position. Total DLP 137 mGy-cm. Images were processed with the software and compared side to side in short axis, horizontal long axis and vertical long axis views. Both arms by her side. FINDINGS: Raw aquisition reviewed. The stress perfusion study showed mildly diminished tracer uptake in the mid anterior wall. There is improvement with CT attenuation correction suggestive of soft tissue attenuation artifact The gated study shows normal LV systolic function with calculated LVEF of 68%. LV cavity is normal in size. The gated study shows normal wall thickening and contraction of segments. Resting study shows no significant perfusion abnormality. Gating at rest reveals normal wall motion with ejection fraction at 70%. The findings are consistent with reversible mid anterior defect but improving with CT attenuation correction. NM/NM cardiolite stress test IMPRESSION: 1. Myocardial perfusion imaging study shows possible ischemia in the mid anterior wall. 2. Gated LVEF is 68% during stress and 70% during rest. 3. Transient ischemic dilatation not present. EKG component of the test reported separately. Electronically signed by: Sean Crowley MD 07/21/2025 05:05 PM [facility]
--- NOTE | 2025-07-20 08:08 | CA_ITS ---
Acquisition Time: 2025-07-20 08:14:42 Total Exercise Time: 00:06:19 Test Indications: MILD AORTIC STENOSIS Medications: SEE H&P Protocol: CAROLYN Max HR: 155 BPM 107% of Pred: 144 BPM Max BP: 170/72 mmHG Max Work Load: 4.6 METS Exercise stress test with exercise 4 mins 30 secs of Carolyn Protocol held at Stage 1, achieving 104% MPHR, with reports of severe SOB, 4/10 burning mid upper chest pain, with frequent PACs and brief runs- max 4 beats, with normotensive response to exercise. With ST depression inferiorly and anterolaterally, meeting criteria for ischemia. In recovery, burning chest pain resolved and breathing improved to baseline. ST segment improved. Nuclear images pending. Will request PCP for referral to Cardiology and recommend starting pt on baby aspirin and Metoprolool Succ 50mg daily. Test reviewed with Dr. Wilson. Referred By: Cleveland Chan Electronically Signed By: Sal Zarate
== END ==
LOC: HO.CARD 08:05
PROVIDERS: PCP Internal Medicine; Visit Provider Internal Medicine
DX: I35.0 Nonrheumatic aortic (valve) stenosis (principal)
CPT/HCPCS: 78452; 93017; A9500

== ENCOUNTER → 2025-07-20 08:08 | Outpatient (BNV) | payer MEDICARE, SELFPAY | PROVIDERS: PCP Internal Medicine | DX: I49.1 Atrial premature depolarization (principal); R06.02 Shortness of breath; R07.89 Other chest pain | CPT/HCPCS: 78452; 93016; 93018 ==

== ENCOUNTER 2025-07-24 16:39 | Inpatient (IN) | payer MEDICARE, SELFPAY ==
[2025-07-24] VITALS (8 sets, daily range): BP systolic 120–160; BP diastolic 49–70; PULSE 87–107; RESP 16–21; TEMP 36.8–37.3; O2SAT 98; BMI 27.5
--- NOTE | ~2025-07-24 | US_ITS ---
EXAMINATION: US ABDOMEN LIMITED CLINICAL INFORMATION: ? Splenomegaly. COMPARISON: Correlation made with CT abdomen pelvis 07/24/2025. TECHNIQUE: Real-time imaging of the spleen was performed. FINDINGS: SPLEEN: Normal, measuring 12.4 cm in length. No abnormalities. FREE FLUID: None. US/US abdomen limited IMPRESSION: Normal spleen. Electronically signed by: Antonio Son MD 07/28/2025 03:10 PM [facility]
--- NOTE | ~2025-07-24 | CT_ITS ---
CLINICAL HISTORY: abd pain CT abdomen and pelvis with contrast Comparison: None provided Findings: Partially visualized left lower lobe ground-glass opacities. Cholecystectomy. No biliary duct dilatation. Liver, spleen, pancreas, and adrenal glands are within normal limits. No hydronephrosis. Symmetric contrast enhancement of the kidneys. Subcentimeter cortical hypodensities, likely cysts. Nonobstructing calculi in the bilateral upper poles. Sigmoid diverticulosis. Mild wall thickening of the ascending and descending colon, possibly colitis. No bowel obstruction, pneumatosis or pneumoperitoneum. Aortic atherosclerosis. No aneurysm. Pelvic contents unremarkable. Normal appendix. Degenerative changes of the spine. No acute fracture. IMPRESSION: Mild wall thickening of ascending and descending colon, possibly colitis. No other acute abdominal findings. This document has been electronically signed by: Marcos Bobo MD on 07/24/2025 19:50:59
--- NOTE | ~2025-07-24 | CT_ITS ---
CLINICAL HISTORY: pain CT chest with contrast Comparison: CR/SR - XR CHEST 2V - 11/13/24 07:37 EDT Findings: Normal heart size. Normal RV/LV ratio. No pericardial effusion. Coronary and aortic atherosclerosis. No aneurysm. The visualized thyroid and mediastinum are unremarkable. Paraseptal and centrilobular emphysema. Right upper lobe and left lower lobe ground-glass and consolidative opacities concerning for pneumonia. No pleural effusion or pneumothorax. The upper abdomen is unremarkable. The bones are intact. IMPRESSION: Right upper lobe and left lower lobe ground-glass and consolidative opacities concerning for pneumonia. This document has been electronically signed by: Marcos Bobo MD on 07/24/2025 19:33:07
--- NOTE | 2025-07-24 16:42 | ECG_ITS ---
Test Reason : CP Blood Pressure : */* mmHG Vent. Rate : 107 BPM Atrial Rate : 107 BPM P-R Int : 130 ms QRS Dur : 94 ms QT Int : 336 ms P-R-T Axes : 52 32 31 degrees QTcB Int : 448 ms Sinus tachycardia Nonspecific ST abnormality Abnormal ECG When compared with ECG of 20-May-2025 09:57, Vent. rate has increased by 36 bpm Referred By: Freya Rico Electronically Signed By: BRIGITTE SAUCEDO
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
[2025-07-24 17:22] LABS: Mean Corpuscular HGB Conc 33.0 g/dl (31.0-35.0); Mean Corpuscular Hemoglobin 33.9 pg (27.0-33.0); Mean Corpuscular Volume 102.7 fL (80.0-98.0); NRBC Abs Auto 0.150 X10*3/uL (0.0-0.012); PLT CLUMP 1; Red Blood Count 1.86 X10*6/uL (4.20-5.50)
[2025-07-24 17:23] LABS: NRBC Pct Auto 2.5 /100WBC (0.0-0.2); WBC ABN SCTR FOR CBC 1
[2025-07-24 17:25] LABS: Hematocrit 19.1 % (37.0-47.0); Hemoglobin 6.3 g/dl (12.0-16.0)
[2025-07-24 17:27] LABS: Alanine Aminotransferase 11 U/L (0-31); Albumin Level 4.2 g/dL (3.5-5.0); Alkaline Phosphatase 54 U/L (39-117); Anion Gap 13 (12-20); Aspartate Amino Transferase 16 U/L (5-31); Blood Urea Nitrogen 16 mg/dL (9-16); Calcium 8.9 mg/dL (8.4-10.2); Carbon Dioxide 23 mmol/L (22-29); Chloride 111 mmol/L (96-108); Creatinine Clr Calc Pharmacy 49.7; Estimated Glomerular Filt Rate > 60; Magnesium 1.9 mg/dL (1.6-2.6); Potassium 3.7 mmol/L (3.3-5.1); Sodium 143 mmol/L (135-145); Total Protein 6.4 g/dL (6.5-8.0)
[2025-07-24 17:40] LABS: Troponin-I High Sensitivity 117.2 ng/L (<3.5-17.0)
--- OUTSIDE RECORDS SUMMARY | 2025-07-24 17:43 | XMS_ITS | Patient Health Record ---
[facility] Address [address] [place] [address] Care Team Providers Care Vending Route Servicer Name Role Phone Kirsten BURKS, Eloise Primary Care Provider Melo Winters Unavailable [phone] Reason For Referral No Information Medications Medication [...] [employer] [address] 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
--- OUTSIDE RECORDS SUMMARY | 2025-07-24 17:43 | XMS_ITS | Patient Health Record ---
Author Organization [facility] Address [address] [place] [id number] Care Team Providers Care Meat Pumper Name Role Phone Yuan Lonny Unavailable [phone] Reason For Referral No Information Plan Of Treatment No Information
[2025-07-24 18:07] LABS: INTERNATIONAL NORM RATIO 1.3 (0.9-1.1); Prothrombin Time 15.7 SEC (11.2-13.5)
[2025-07-24] MEDS: iohexoL 350 MG/ML 100 ML INFUS..BTL 85 ML IV (18:17)
[2025-07-24 18:21] LABS: Atypical Lymphs Percent Manual 4 % (0-6); Band Neutrophils Percent 1 % (3-5); Lymphocytes Percent Manual 56 % (20-40); Monocytes Percent Manual 18 % (2-11); Neutrophils Percent Manual 19 % (45-73); Promyelocytes Percent 2 %
[2025-07-24 18:25] LABS: Ovalocytes 1+ (5-14) /OIF; RBC Morphology NOTED
[2025-07-24 18:26] LABS: Schistocytes 1+ (0-2) /OIF
[2025-07-24 18:27] LABS: Large Platelet PRESENT
[2025-07-24 18:30] LABS: Atypical Lymph Absolute Manual 0.2 x10*3/uL; Lymphocytes Absolute Manual 3.3 X10*3/uL (1.2-4.9); Monocytes Absolute Manual 1.1 X10*3/uL (0.1-1.2); Neutrophils Absolute Manual 1.2 X10*3/uL (2.0-8.3); Platelet Count 54 X10*3/uL (160-400); Promyelocytes Absolute 0.1 X10*3/uL; White Blood Count 5.9 X10*3/uL (4.8-10.8)
[2025-07-24 20:34] LABS: Mean Corpuscular HGB Conc 32.8 g/dl (31.0-35.0); Mean Corpuscular Hemoglobin 33.7 pg (27.0-33.0); Mean Corpuscular Volume 102.9 fL (80.0-98.0); NRBC Abs Auto 0.110 X10*3/uL (0.0-0.012); PLT CLUMP 1; Red Blood Count 1.75 X10*6/uL (4.20-5.50)
[2025-07-24 20:36] LABS: Reticulocytes Absolute 0.034 X10*6/uL (0.026-0.095)
[2025-07-24 20:45] LABS: Folate 11.1 ng/mL (> or = 4.0)
[2025-07-24 20:46] LABS: NRBC Pct Auto 2.1 /100WBC (0.0-0.2); WBC ABN SCTR FOR CBC 1
[2025-07-24 20:48] LABS: Hematocrit 18.0 % (37.0-47.0); Hemoglobin 5.9 g/dl (12.0-16.0)
[2025-07-24 20:49] LABS: Vitamin B12 > 2000 pg/mL (200-900)
[2025-07-24 21:50] LABS: Troponin-I High Sensitivity 123.1 ng/L (<3.5-17.0)
--- NOTE | 2025-07-24 21:55 | PC.NURSE ---
tolerating blood transfusion without any s/s or c/o any transfusion reaction at this time
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
[2025-07-24 22:15] LABS: Platelet Count 52 X10*3/uL (160-400); White Blood Count 5.3 X10*3/uL (4.8-10.8)
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
[2025-07-24 22:56] LABS: Iron 47 mcg/dL (30-160); Percent Iron Saturation 24 % (15-50); Total Iron Binding Capacity 196 mcg/dL (228-428); Unsaturated Iron Binding 149 ug/dL
[2025-07-24 23:12] LABS: Ferritin 1215 ng/mL (10-250)
[2025-07-24 23:28] LABS: Folate 11.5 ng/mL (> or = 4.0); Vitamin B12 > 2000 pg/mL (200-900)
[2025-07-25] VITALS (8 sets, daily range): BP systolic 116–141; BP diastolic 50–64; PULSE 80–93; RESP 16–25; TEMP 36.7–37.4; O2SAT 94–96; BMI 28.3
[2025-07-25 00:27] LABS: Thyroid Stimulating Hormone 1.79 uIU/mL (0.32-4.0)
--- NOTE | 2025-07-25 01:46 | HO.NURTONUR ---
pt reports having burning in the chest for couple of weeks with exertion, had a stress test on Saturday, today also not feeling right in her abd and feeling general weakness. pt had hgb 5.9 - hct 18.0 rec'd 2 units prbc. trop also trending up. 2 IV's rAC and Rwrist - DX PNA as well - rec ceftriaxone and zmax. temp at 99.3. pt isv a&ox4. no distress at this time. IVF to start at 0400. [ End ]
[2025-07-25] MEDS: Lactated Ringers 1,000 ML 80 ML IVCONT ×2 (04:46→15:04)
--- NOTE | 2025-07-25 08:50 | HO.PM.IMPN ---
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 HEART: no murmurs, regular rate and rhythm. LUNGS: clear to auscultation bilaterally. ABDOMEN: soft, nontender. NEUROLOGIC: No gross deficits, AAO X 3 Vital Signs: Vital Signs: Last Vital Signs Temp 98.0 F 07/25/25 07:44 Pulse 82 07/25/25 07:44 Resp 16 07/25/25 07:44 BP 133/63 07/25/25 07:44 Pulse Ox 96 07/25/25 07:44 O2 Del Method Room Air 07/25/25 07:44 BMI result Body Mass Index 28.3 Objective Data Active Medications Acetaminophen (Acetaminophen 325 Mg Tablet) 975 mg PO Q6H PRN PRN Reason: Pain, Mild 1-3,fever,headache Calcium Carbonate (Calcium Carbonate 750 Mg Tab.Chew) 750 mg PO Q4H PRN PRN Reason: Heartburn Ceftriaxone Sodium 1 gm/ (Sodium Chloride) 50 mls @ 100 mls/hr IV Q[facility]H [facility] Last Infusion: 07/25/25 03:25 Dose: Infused Documented By: FRANCIA Azithromycin 500 mg/ Sodium (Chloride) 250 mls @ 125 mls/hr IV Q24H [facility] Last Infusion: 07/25/25 03:24 Dose: Infused Documented By: FRANCIA Lactated Ringer's (Lr) 1,000 mls @ 80 mls/hr IVCONT .[id number] [facility] Last Admin: 07/25/25 04:46 Dose: 80 mls/hr Documented By: FRANCIA Comments: unable to scan bracelet Magnesium Hydroxide (Milk Of Magnesia 30 Ml Oral.Susp) 30 ml PO DAILY PRN PRN Reason: Constipation Melatonin (Melatonin 3 Mg Tablet) 6 mg PO BEDTIME PRN PRN Reason: Insomnia Pantoprazole Sodium (Pantoprazole Sodium 40 Mg/10 Ml Vial) 40 mg IVPUSH DAILY@0630 [facility] Last Admin: 07/25/25 07:02 Dose: 40 mg Documented By: FRANCIA Sodium Chloride (0.9 % Sodium Chloride Flush 3 Ml Syringe) 3 ml IVFLUSH QSHIFT [facility] Last Admin: 07/25/25 00:00 Dose: Not Given Documented By: FRANCIA Non-Admin Reason: not documented in ED Comments: not on med/tele at scheduled time Labs 07/25/25 09:20 07/25/25 09:20 Labs: Laboratory Results - last 24 hr 07/24/25 07/24/25 07/24/25 17:06 17:51 19:31 MCV 102.7 H 102.9 H MCH 33.9 H 33.7 H MCHC 33.0 32.8 RDW 18.2 H 18.2 H Plt Count 54 L 52 L MPV Not Reportable Not Reportable Immature Gran % (Auto) Cancelled Neut % (Auto) Cancelled Lymph % (Auto) Cancelled [place] % (Auto) Cancelled Eos % (Auto) Cancelled Baso % (Auto) Cancelled Lymph # (Auto) Cancelled [place] # (Auto) Cancelled Eos # (Auto) Cancelled Baso # (Auto) Cancelled Abs Immat Gran (auto) Cancelled Absolute Neuts (auto) Cancelled Absolute Nucleated RBC 0.150 H 0.110 H Nucleated RBC % (auto) 2.5 H 2.1 H Neutrophils % (Manual) 19 L Band Neutrophils % 1 L Lymphocytes % (Manual) 56 H Atypical Lymphs % (Man) 4 Monocytes % (Manual) 18 H Promyelocytes % 2 Abs Neuts (Manual) 1.2 L Lymphocytes # (Manual) 3.3 Atyp Lymphs # (Manual) 0.2 Monocytes # (Manual) 1.1 Promyelocytes # 0.1 Nucleated RBCs 12 H Platelet Estimate DECREASED Large Platelets PRESENT Plt Morphology Comment NOTED RBC Morphology NOTED Ovalocytes 1+ (5-14) Schistocytes 1+ (0-2) Absolute Retic Percent Retic Immature Retic Fraction Retic Hgb Equivalent PT 15.7 H INR 1.3 H Anion Gap 13 Estim Creat Clear Calc 49.7 Estimated GFR > 60 Random Glucose 119 H Haptoglobin Calcium 8.9 Magnesium 1.9 Iron TIBC % Saturation Unsat Iron Binding Ferritin Total Bilirubin 1.2 H Direct Bilirubin 0.5 AST 16 ALT 11 Alkaline Phosphatase 54 Lactate Dehydrogenase Troponin I High Sens 117.2 H* Total Protein 6.4 L Albumin 4.2 Vitamin B12 Folate TSH Blood Type B Positive Antibody Screen NEGATIVE HOME, Polyspecific Positive HOME Work-up Crossmatch See Detail 07/24/25 07/24/25 07/24/25 19:35 21:10 22:19 MCV MCH MCHC RDW Plt Count MPV Immature Gran % (Auto) Neut % (Auto) Lymph % (Auto) [place] % (Auto) Eos % (Auto) Baso % (Auto) Lymph # (Auto) [place] # (Auto) Eos # (Auto) Baso # (Auto) Abs Immat Gran (auto) Absolute Neuts (auto) Absolute Nucleated RBC Nucleated RBC % (auto) Neutrophils % (Manual) Band Neutrophils % Lymphocytes % (Manual) Atypical Lymphs % (Man) Monocytes % (Manual) Promyelocytes % Abs Neuts (Manual) Lymphocytes # (Manual) Atyp Lymphs # (Manual) Monocytes # (Manual) Promyelocytes # Nucleated RBCs Platelet Estimate Large Platelets Plt Morphology Comment RBC Morphology Ovalocytes Schistocytes Absolute Retic 0.034 Percent Retic 1.9 H Immature Retic Fraction 24.3 H Retic Hgb Equivalent 31.7 PT INR Anion Gap Estim Creat Clear Calc Estimated GFR Random Glucose Haptoglobin 140 Calcium Magnesium Iron TIBC % Saturation Unsat Iron Binding Ferritin Total Bilirubin Direct Bilirubin AST ALT Alkaline Phosphatase Lactate Dehydrogenase 277 H Troponin I High Sens 123.1 H* Total Protein Albumin Vitamin B12 > 2000 H > 2000 H Folate 11.1 11.5 TSH Blood Type Antibody Screen HOME, Polyspecific NEGATIVE Positive HOME Work-up Not Reportable Crossmatch 07/24/25 22:20 MCV MCH MCHC RDW Plt Count MPV Immature Gran % (Auto) Neut % (Auto) Lymph % (Auto) [place] % (Auto) Eos % (Auto) Baso % (Auto) Lymph # (Auto) [place] # (Auto) Eos # (Auto) Baso # (Auto) Abs Immat Gran (auto) Absolute Neuts (auto) Absolute Nucleated RBC Nucleated RBC % (auto) Neutrophils % (Manual) Band Neutrophils % Lymphocytes % (Manual) Atypical Lymphs % (Man) Monocytes % (Manual) Promyelocytes % Abs Neuts (Manual) Lymphocytes # (Manual) Atyp Lymphs # (Manual) Monocytes # (Manual) Promyelocytes # Nucleated RBCs Platelet Estimate Large Platelets Plt Morphology Comment RBC Morphology Ovalocytes Schistocytes Absolute Retic Percent Retic Immature Retic Fraction Retic Hgb Equivalent PT INR Anion Gap Estim Creat Clear Calc Estimated GFR Random Glucose Haptoglobin Calcium Magnesium Iron 47 TIBC 196 L % Saturation 24 Unsat Iron Binding 149 Ferritin 1215 H Total Bilirubin Direct Bilirubin AST ALT Alkaline Phosphatase Lactate Dehydrogenase Troponin I High Sens Total Protein Albumin Vitamin B12 Folate TSH 1.79 Blood Type Antibody Screen HOME, Polyspecific Positive HOME Work-up Crossmatch Assessment and Plan (1) Anemia: Status: Acute Assessment and Plan: 74 year old female with PMH notable for acute on chronic anemia, aortic stenosis, BCC, GERD, HLD, thrombocytopenia, known B12 deficiency anemia on B12 supplements, prior smoker who lady presented with exertional chest pain and symptomatic anemia. Acute blood loss anemia-acute on chronic Known B12 deficiency macrocytic anemia Thrombocytopenia Hematology consulted by admitting team-likely secondary to acute infection (AI TOLENTINO, ITP, hemolytic anemia) Status post 2 units PRBC Daily CBC Hematology workup-Kirk negative, mycoplasma serologies pending Symptomatic anemia with dizziness and dyspnea Cardiology consulted - we will have outpatient Cardiology follow-up, her symptomatic anemia is likely etiology for her dizziness Sepsis secondary to pneumonia She is on broad-spectrum antibiotics for possible sepsis secondary to pneumonia Known GERD-continue PPI B12 deficiency continue B12 supplements HLD continue statins Thrombocytopenia-continue to monitor Steroids initiated for possible ITP This note is constructed using voice recognition software. While every effort has been made to ensure accuracy, senior wind energy consultant errors may have been included. DVT prophylaxis with the SCD boots in the setting of acute blood loss anemia This note is constructed using voice recognition software. While every effort has been made to ensure accuracy, senior wind energy consultant errors may have been included. Quality Stroke Does the patient have a stroke diagnosis?: No VTE Prior VTE?: No VTE Risk Level:: Medical - moderate - high VTE Device Contraindication: N/A - Device Ordered VTE Drug Contraindication: Treatment Not Indicated
--- NOTE | 2025-07-25 09:02 | MHC.CM.PN ---
CM met with Patient and addressed IMM with her. 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 Home/self care is Patient's goal and CM has initiated and will follow for dc planning. PCP is and one of Patient's Children will transport at dc.
[2025-07-25] MEDS: 0.9 % Sodium Chloride Flush 3 ML SYRINGE IVFLUSH ×2 (09:14→16:32)
[2025-07-25 09:45] LABS: Hemoglobin 8.7 g/dl (12.0-16.0); Mean Corpuscular Hemoglobin 32.0 pg (27.0-33.0); Red Blood Count 2.72 X10*6/uL (4.20-5.50)
[2025-07-25 09:46] LABS: Appearance Urine Clear; Glucose Urine UA Negative (Negative); PH 6.0 (5.0-9.0); Specific Gravity - Urine >= 1.030 (1.005-1.025); UMIC TRIGGER UACC YES
[2025-07-25 09:48] LABS: Hematocrit 25.5 % (37.0-47.0); Mean Corpuscular HGB Conc 34.1 g/dl (31.0-35.0); Mean Corpuscular Volume 93.8 fL (80.0-98.0); NRBC Abs Auto 0.140 X10*3/uL (0.0-0.012)
[2025-07-25 09:51] LABS: Alanine Aminotransferase 13 U/L (0-31); Albumin Level 3.9 g/dL (3.5-5.0); Alkaline Phosphatase 46 U/L (39-117); Anion Gap 11 (12-20); Aspartate Amino Transferase 17 U/L (5-31); Blood Urea Nitrogen 12 mg/dL (9-16); Calcium 8.7 mg/dL (8.4-10.2); Carbon Dioxide 22 mmol/L (22-29); Chloride 112 mmol/L (96-108); Creatinine Clr Calc Pharmacy 63.6; Estimated Glomerular Filt Rate > 60; Magnesium 1.8 mg/dL (1.6-2.6); Potassium 3.5 mmol/L (3.3-5.1); Sodium 141 mmol/L (135-145); Total Protein 5.8 g/dL (6.5-8.0)
[2025-07-25 10:00] LABS: UACC Culture Trigger YES
[2025-07-25 10:01] LABS: NRBC Pct Auto 2.7 /100WBC (0.0-0.2); PLT ABN DIST 1; Platelet Count 48 X10*3/uL (160-400); WBC ABN SCTR FOR CBC 1
[2025-07-25 10:03] LABS: Troponin-I High Sensitivity 137.7 ng/L (<3.5-17.0)
--- NOTE | 2025-07-25 11:03 | PHA.MEDREC ---
Pharmacy Consult ? Medication Reconciliation Pharmacy has completed the medication reconciliation.Med rec complete, spoke to patient and compared with pharmacy claims history
[2025-07-25 11:22] LABS: Atypical Lymphs Percent Manual 7 % (0-6); Band Neutrophils Percent 3 % (3-5); Basophils Percent Manual 1 % (0-2); Blast Percent 5 %; Lymphocytes Percent Manual 37 % (20-40); Metamyelocytes Percent 1 %; Monocytes Percent Manual 16 % (2-11); Myelocytes Percent 8 %; Neutrophils Percent Manual 22 % (45-73)
[2025-07-25 11:36] LABS: RBC Morphology NOTED
[2025-07-25 11:37] LABS: Macrocytosis 1+ (5-14) /OIF
[2025-07-25 11:38] LABS: Large Platelet PRESENT; Ovalocytes 1+ (5-14) /OIF
[2025-07-25 11:39] LABS: Polychromasia 1+ (0-2) /OIF; Spherocytes 1+ (0-2) /OIF; Tear Drop Cells 1+ (0-2) /OIF
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
[2025-07-25 13:49] LABS: Atypical Lymph Absolute Manual 0.4 x10*3/uL; Basophils Abs Manual 0.1 X10*3/uL (0.0-0.2); Blastocytes Absolute 0.3 X10*3/uL; Lymphocytes Absolute Manual 1.9 X10*3/uL (1.2-4.9); Metamyelocytes Absolute 0.1 X10*3/uL; Monocytes Absolute Manual 0.8 X10*3/uL (0.1-1.2); Myelocytes Absolute 0.4 X10*/uL; Neutrophils Absolute Manual 1.3 X10*3/uL (2.0-8.3); White Blood Count 5.2 X10*3/uL (4.8-10.8)
[2025-07-26 03:33] VITALS: BP 119/59; PULSE 67; RESP 18; TEMP 36.6; O2SAT 95
[2025-07-26] MEDS: Lactated Ringers 1,000 ML 80 ML IVCONT (06:44)
[2025-07-26 07:19] VITALS: BP 117/58; PULSE 69; RESP 18; TEMP 36.4; O2SAT 98
[2025-07-26] MEDS: Fluticasone/Vilanterol 100/25 BLST.W.DEV 1 PUFF INHALE (07:39)
[2025-07-26 07:40] VITALS: PULSE 69; RESP 18; O2SAT 97
[2025-07-26 08:32] LABS: Hematocrit 25.8 % (37.0-47.0); Hemoglobin 8.7 g/dl (12.0-16.0); Mean Corpuscular HGB Conc 33.7 g/dl (31.0-35.0); Mean Corpuscular Hemoglobin 32.6 pg (27.0-33.0); Mean Corpuscular Volume 96.6 fL (80.0-98.0); NRBC Abs Auto 0.060 X10*3/uL (0.0-0.012); PLT CLUMP 1; Red Blood Count 2.67 X10*6/uL (4.20-5.50)
[2025-07-26 08:33] LABS: NRBC Pct Auto 1.3 /100WBC (0.0-0.2); WBC ABN SCTR FOR CBC 1
[2025-07-26 08:46] LABS: Alanine Aminotransferase 10 U/L (0-31); Albumin Level 3.7 g/dL (3.5-5.0); Alkaline Phosphatase 44 U/L (39-117); Anion Gap 11 (12-20); Aspartate Amino Transferase 17 U/L (5-31); Blood Urea Nitrogen 16 mg/dL (9-16); Calcium 9.0 mg/dL (8.4-10.2); Carbon Dioxide 23 mmol/L (22-29); Chloride 112 mmol/L (96-108); Creatinine Clr Calc Pharmacy 61.8; Estimated Glomerular Filt Rate > 60; Potassium 4.0 mmol/L (3.3-5.1); Sodium 142 mmol/L (135-145); Total Protein 5.9 g/dL (6.5-8.0)
--- NOTE | 2025-07-26 09:50 | P.DS_ITS ---
DS: Providers Provider Date of Service: 07/26/25 Date of admission: 07/24/25 21:25 Date of discharge: 07/26/25 Primary care physician: Cleveland Chan MD Consults: 07/24/25 22:30 Consult to Cardiology Routine Consulting Provider[place] [facility] [facility] [place] [facility] Reason for consultation: Chest pain, abnormal stress test, elevated troponin, anemia Has provider been notified: No Consult to Hematology / Oncology Routine Consulting Provider[place] [facility] [place] Reason for consultation: Hemolytic anemia Has provider been notified: No DS: Diagnosis Discharge Diagnosis (1) Anemia: Status: Acute DS: Summary Hospital Course Hospital Course: H&P: Chief Complaint: Burning chest pain Taryn Saldivar is a very pleasant 74 years old woman with a past medical history significant for vitamin B12 deficiency on oral vitamin supplementation, hyperlipidemia, GERD and asthma presents to the emergency department complaining of worsening shortness on breath over the last several days and burning chest discomfort. Shortness of the breath is worse with exertion. She also reported some cough and recently started on budesonide-formoterol. Denied nausea, vomiting, diarrhea, abdominal pain. She did not report weight loss but has poor appetite. Patient reported ankle edema. She mentioned that she had a similar episode last winter. She had a recent stress test that came back abnormal (myocardial perfusion imaging study showed possible ischemia in the mid anterior wall, transient ischemic dilatation not present, LVEF 68%). She takes statin and Protonix. Abdominal surgical history is remarkable for laparoscopic cholecystectomy. 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 The patient has been told that she has a anemia and thrombocytopenia in the past. She did not report alcohol abuse, tobacco smoking or illicit drug use. In the ED, she was found to stable vital signs. Blood workup showed marked anemia, hemoglobin 6.3 then 5.9. Hematocrit is 19.1 then 18.0. MCV is 102.7, RDW 18.2. Platelets are 54. Differential significant for low neutrophils, bandemia 1%, lymphocytosis of 58 and monocytosis of 18 %. There are nucleated R BCs, large platelets, ovalocytes 1+ schistocytes 1+. Person retic is 1.9 % (elevated). INR is 1.3. There are no significant electrolyte imbalances. BUN is 16 and creatinine 0.87. Glucose is 119. Total bilirubin is 1.2. LDH is 277. Troponin is trending up from 117.2-123.1. Vitamin B12 elevated > 2000. Folate 11.1. Abdominal pelvis CT scan with IV contrast showed mild wall thickening of ascending and descending colon, possible colitis and no other acute abdominal findings. Chest CT scan with IV contrast showed right upper lobe and left lower lobe ground-glass and consolidative opacities concerning for pneumonia. Chart review: Cologuard done in 2022: Unremarkable. H pylori October 2024 not detectable. ED tx: Two PRBCs transfusion. Hospital course: Patient received 2 units PRBC this admission and likely her acute on chronic symptomatic anemia has been a gradual progressive etiology rather than an acute and her hemoglobin at the time of discharge was 8.7 for 2 days consistently. Patient was seen by Cardiology and Hematology and recommended prednisone therapy for possible ITP. Mycoplasma pneumonia was on the differential and it is still currently pending, along with immunoglobulin studies-patient to follow up with primary care for that. She has appointments with Cardiology-possibly further medical management we will be based on her workup in outpatient settings She has been prescribed prednisone taper for possible ITP to follow up with Hematology outpatient Patient was back to her baseline ambulation and does not need any services at the time of discharge. Time spent discussing smoking cessation with patient: more than 10 minutes Status at Discharge Functional status at discharge: independent ambulation Overall status at discharge: patient is progressing back to baseline Time Attestation Discharge Coordination Time (in mins): 55 Quality: Safe Use of Opioids Does Pt have an Active Cancer Diagnosis on the Problem List?: No Quality: Stroke Does the patient have a stroke diagnosis?: No Physical Exam Vital Signs: Vital Signs: Last Vital Signs Temp 97.5 F 07/26/25 07:19 Pulse 69 07/26/25 07:40 Resp 18 07/26/25 07:40 BP 117/58 L 07/26/25 07:19 Pulse Ox 98 07/26/25 07:19 O2 Del Method Room Air 07/26/25 07:19 BMI result Body Mass Index 28.3 DS: Data Data Completed and Pending Labs on day of discharge: Laboratory Results - last 24 hr 07/24/25 07/25/25 07/25/25 22:19 09:20 09:31 WBC 5.2 RBC 2.72 L D Hgb 8.7 L D Hct 25.5 L D MCV 93.8 D MCH 32.0 MCHC 34.1 RDW 18.8 H Plt Count 48 L MPV Not Reportable Immature Gran % (Auto) Cancelled Neut % (Auto) Cancelled Lymph % (Auto) Cancelled [place] % (Auto) Cancelled Eos % (Auto) Cancelled Baso % (Auto) Cancelled Lymph # (Auto) Cancelled [place] # (Auto) Cancelled Eos # (Auto) Cancelled Baso # (Auto) Cancelled Abs Immat Gran (auto) Cancelled Absolute Neuts (auto) Cancelled Absolute Nucleated RBC 0.140 H Nucleated RBC % (auto) 2.7 H Neutrophils % (Manual) 22 L Band Neutrophils % 3 Lymphocytes % (Manual) 37 Atypical Lymphs % (Man) 7 H Monocytes % (Manual) 16 H Basophils % (Manual) 1 Metamyelocytes % 1 Myelocytes % 8 Blast Cells % (Manual) 5 Abs Neuts (Manual) 1.3 L Lymphocytes # (Manual) 1.9 Atyp Lymphs # (Manual) 0.4 Monocytes # (Manual) 0.8 Basophils # (Manual) 0.1 Metamyelocytes # 0.1 Myelocytes # 0.4 Blast Cells # 0.3 Platelet Estimate DECREASED Large Platelets PRESENT Giant Platelets PRESENT Plt Morphology Comment NOTED RBC Morphology NOTED Polychromasia 1+ (0-2) Macrocytosis 1+ (5-14) Spherocytes 1+ (0-2) Tear Drop Cells 1+ (0-2) Ovalocytes 1+ (5-14) Sodium 141 Potassium 3.5 Chloride 112 H Carbon Dioxide 22 Anion Gap 11 L BUN 12 Creatinine 0.69 Estim Creat Clear Calc 63.6 Estimated GFR > 60 Random Glucose 129 H Calcium 8.7 Magnesium 1.8 Total Bilirubin 1.6 H Direct Bilirubin 0.5 AST 17 ALT 13 Alkaline Phosphatase 46 Troponin I High Sens 137.7 H* Total Protein 5.8 L Albumin 3.9 Urine Color Yellow Urine Appearance Clear Urine pH 6.0 Ur Specific Pritchett >= 1.030 H Urine Protein Negative Urine Glucose (UA) Negative Urine Ketones Negative Urine Blood Negative Urine Nitrite Positive H Ur Leukocyte Esterase Trace H Urine RBC 0-2 Urine WBC 0-5 Ur Squamous Epith Cells 11-20 Urine Bacteria None Seen Hyaline Casts 0-2 Positive HOME Work-up TNP 07/26/25 08:08 WBC RBC 2.67 L Hgb 8.7 L Hct 25.8 L MCV 96.6 MCH 32.6 MCHC 33.7 RDW 17.8 H Plt Count MPV Not Reportable Immature Gran % (Auto) Cancelled Neut % (Auto) Cancelled Lymph % (Auto) Cancelled [place] % (Auto) Cancelled Eos % (Auto) Cancelled Baso % (Auto) Cancelled Lymph # (Auto) Cancelled [place] # (Auto) Cancelled Eos # (Auto) Cancelled Baso # (Auto) Cancelled Abs Immat Gran (auto) Cancelled Absolute Neuts (auto) Cancelled Absolute Nucleated RBC 0.060 H Nucleated RBC % (auto) 1.3 H Neutrophils % (Manual) Band Neutrophils % Lymphocytes % (Manual) Atypical Lymphs % (Man) Monocytes % (Manual) Basophils % (Manual) Metamyelocytes % Myelocytes % Blast Cells % (Manual) Abs Neuts (Manual) Lymphocytes # (Manual) Atyp Lymphs # (Manual) Monocytes # (Manual) Basophils # (Manual) Metamyelocytes # Myelocytes # Blast Cells # Platelet Estimate Large Platelets Giant Platelets Plt Morphology Comment RBC Morphology Polychromasia Macrocytosis Spherocytes Tear Drop Cells Ovalocytes Sodium 142 Potassium 4.0 Chloride 112 H Carbon Dioxide 23 Anion Gap 11 L BUN 16 Creatinine 0.71 Estim Creat Clear Calc 61.8 Estimated GFR > 60 Random Glucose 108 Calcium 9.0 Magnesium Total Bilirubin 1.1 H Direct Bilirubin AST 17 ALT 10 Alkaline Phosphatase 44 Troponin I High Sens Total Protein 5.9 L Albumin 3.7 Urine Color Urine Appearance Urine pH Ur Specific P[place]tt Urine Protein Urine Glucose (UA) Urine Ketones Urine Blood Urine Nitrite Ur Leukocyte Esterase Urine RBC Urine WBC Ur Squamous Epith Cells Urine Bacteria Hyaline Casts Positive HOME Work-up Discharge Plan Discharge Anticipated Discharge Date/Time: 07/26/25 09:42 Patient Disposition: Home, Self-Care Discharge Diagnosis: Severe symptomatic microcytic anemia likely secondary to viral etiology Referrals: Charlie Wilson MD [Physician, Cardiology] - 1 Week Ani Mccoy MD [Physician, Hematology & Oncology] - 1 Week Cleveland Chan MD [Primary Care Provider, Internal Medicine] - 1 Week Discharge Medications: New prednisone 20 mg Tablet See Taper PO DAILY 15 Days Qty: 15 0RF Taper: Prednisone 40 mg daily for 3 Days and 0 Hour 30 mg daily for 3 Days and 0 Hour 20 mg daily for 3 Days and 0 Hour 10 mg daily for 3 Days and 0 Hour levofloxacin 500 mg tablet 500 mg PO Q24H 7 Days Qty: 7 0RF Continued mecobalamin (vitamin B12) 1,000 mcg tablet,chewable 1,000 mcg PO DAILY Qty: 90 1RF atorvastatin 10 mg tablet 10 mg PO DAILY Qty: 90 1RF pantoprazole 40 mg tablet,delayed release (DR/EC) 40 mg PO DAILY Qty: 90 1RF budesonide-formoterol [Symbicort] 80-4.5 mcg/actuation HFA aerosol inhaler 1 inh inhalation BID Qty: 10.2 1RF Discharge Orders: Discharge Order (Routine); Ordered 07/26/25 Ordered By: Mónica Dillard Diet: Advance to usual diet Activity on Discharge: As tolerated Stand Alone Forms: Patient Portal Discharge page Print Language: Italian Care Plan Goals: Finish antibiotic course of 7 more days to complete a 10 day course of antibiotics Please take the prednisone taper as instructed Dosing Instructions with 20 mg Tablets * Days 1?3:?2 tablets daily (40 mg) * Days 4?6:?1.5 tablets daily (30 mg) * Days 7?9:?1 tablet daily (20 mg) * Days 10?12:?0.5 tablet daily (10 mg) Note:?For the 30 mg and 10 mg doses, the patient will need to split the 20 mg tablets in half. Please follow up with your primary care within a week Please follow up with freelance displayer within a week Feel please follow up with Hematology within a week Please come back to the ED if you noticing any further worsening in symptoms Health Concerns: See above Plan of Treatment: See above Assessment: See above
[2025-07-26 10:06] LABS: White Blood Count 4.5 X10*3/uL (4.8-10.8)
[2025-07-26 10:07] LABS: Platelet Count 41 X10*3/uL (160-400)
--- NOTE | 2025-07-26 10:53 | MHC.CM.PN ---
PLAN IS FOR DC TODAY - HOME NO SERVICES. RN AWARE OF PLAN.
[2025-07-26 11:54] LABS: Atypical Lymph Absolute Manual 0.3 x10*3/uL; Atypical Lymphs Percent Manual 6 % (0-6); Band Neutrophils Percent 0 % (3-5); Lymphocytes Absolute Manual 1.4 X10*3/uL (1.2-4.9); Lymphocytes Percent Manual 32 % (20-40); Metamyelocytes Absolute 0.1 X10*3/uL; Metamyelocytes Percent 2 %; Monocytes Absolute Manual 0.2 X10*3/uL (0.1-1.2); Monocytes Percent Manual 5 % (2-11); Myelocytes Absolute 0.1 X10*/uL; Myelocytes Percent 2 %; Neutrophils Absolute Manual 2.3 X10*3/uL (2.0-8.3); Neutrophils Percent Manual 50 % (45-73); Promyelocytes Absolute 0.1 X10*3/uL; Promyelocytes Percent 3 %
[2025-07-26 11:55] LABS: Large Platelet PRESENT; RBC Morphology NORMAL; Schistocytes 1+ (0-2) /OIF; Tear Drop Cells 1+ (0-2) /OIF
[2025-07-26 11:56] LABS: Burr Cells 3+ (>5) /OIF; Hypochromasia 1+ (5-14) /OIF; Polychromasia 1+ (0-2) /OIF
[2025-07-28 21:33] LABS: Mycoplasma Pneumoniae - IgG 3.44 (<=0.90); Mycoplasma Pneumoniae - IgM 413 U/mL (<770)
== END 2025-07-26 11:45 | disposition home or self-care (01) | DRG 194 ==
LOC: HO.ED 17:41 → HO.EDOVER 21:48 → HO.IMC 07-25 01:08
PROVIDERS: Internal Medicine Medical Oncology; Physician Assistant Medical; Admitting Provider Internal Medicine; Emergency Provider Emergency Medicine; PCP Internal Medicine; Visit Provider Student in an Organized Health Care Education/Training Program
DX: J15.7 Pneumonia due to Mycoplasma pneumoniae (principal); D62 Acute posthemorrhagic anemia; D69.3 Immune thrombocytopenic purpura; E53.8 Deficiency of other specified B group vitamins; E78.5 Hyperlipidemia, unspecified; K21.9 Gastro-esophageal reflux disease without esophagitis; D46.9 Myelodysplastic syndrome, unspecified; Z87.891 Personal history of nicotine dependence; Z79.899 Other long term (current) drug therapy
CPT/HCPCS: 36415; 71260; 74177; 76705; 80053; 81001; 82248; 82607; 82668; 82728; 82746; 82784; 83010; 83090; 83540; 83615; 83735; 83921; 84443; 84484; 85007; 85025; 85027; 85045; 85610; 86157; 86738; 86850; 86880; 86900; 86901; 86923; 87086; 88184; 88185; 93005; 94640; 99285; J0456; J0696; J2470; J7120; P9016; Q9967

== ENCOUNTER → 2025-07-24 17:32 | Outpatient (BNV) | payer MEDICARE, SELFPAY | PROVIDERS: Emergency Provider Emergency Medicine; PCP Internal Medicine; Visit Provider Radiology Diagnostic Radiology | DX: K63.89 Other specified diseases of intestine (principal); R91.8 Other nonspecific abnormal finding of lung field | CPT/HCPCS: 71260; 74177 ==

== ENCOUNTER 2025-07-24 21:25 | Outpatient (BNV) | payer MEDICARE, SELFPAY | END 2025-07-25 08:32 | PROVIDERS: Admitting Provider Internal Medicine; Emergency Provider Emergency Medicine; PCP Internal Medicine; Visit Provider Radiology Diagnostic Radiology | DX: D64.9 Anemia, unspecified (principal) | CPT/HCPCS: 76705 ==

== ENCOUNTER → 2025-07-24 21:25 | Outpatient (BNV) | payer MEDICARE, SELFPAY | PROVIDERS: Admitting Provider Internal Medicine; Emergency Provider Emergency Medicine; PCP Internal Medicine; Visit Provider Internal Medicine Cardiovascular Disease | DX: R00.0 Tachycardia, unspecified (principal) | CPT/HCPCS: 93010 ==

== ENCOUNTER → 2025-07-24 21:25 | Outpatient (BNV) | payer MEDICARE, SELFPAY | PROVIDERS: Admitting Provider Internal Medicine; Emergency Provider Emergency Medicine; PCP Internal Medicine; Visit Provider Internal Medicine | DX: D64.9 Anemia, unspecified (principal) | CPT/HCPCS: 99222; 99232; 99239 ==

== ENCOUNTER → 2025-07-24 21:25 | Outpatient (BNV) | payer MEDICARE, SELFPAY | PROVIDERS: Admitting Provider Internal Medicine; Emergency Provider Emergency Medicine; PCP Internal Medicine; Visit Provider Internal Medicine Medical Oncology | DX: D53.9 Nutritional anemia, unspecified (principal); D69.6 Thrombocytopenia, unspecified | CPT/HCPCS: 99232 ==

== ENCOUNTER 2025-07-28 07:33 | Outpatient (AMB) | payer MEDICARE, SELFPAY ==
[2025-07-28 08:18] VITALS: BP 136/68; PULSE 71; O2SAT 98; BMI 28.5
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
== END 2025-07-28 08:57 | disposition home or self-care (01) ==
LOC: HO.HMCH 07:34
PROVIDERS: PCP Internal Medicine; Visit Provider Internal Medicine
DX: D69.6 Thrombocytopenia, unspecified (principal)

== ENCOUNTER → 2025-07-28 07:33 | Outpatient (BNVA) | payer MEDICARE, SELFPAY | PROVIDERS: PCP Internal Medicine; Visit Provider Internal Medicine | DX: D69.6 Thrombocytopenia, unspecified (principal) | CPT/HCPCS: 99212 ==

== ENCOUNTER → 2025-07-29 11:52 | Outpatient (BNV) | payer MEDICARE, SELFPAY | PROVIDERS: Visit Provider Internal Medicine Medical Oncology | DX: D64.9 Anemia, unspecified (principal); D69.6 Thrombocytopenia, unspecified; D70.9 Neutropenia, unspecified | CPT/HCPCS: 99212; 99214 ==